=== PATIENT | female | born 1975 | race Caucasian/White ===

== ENCOUNTER 2022-03-18 10:42 | Outpatient (REF) | payer BC, SELFPAY ==
--- NOTE | ~2022-03-18 | XR_ITS ---
EXAMINATION: XR CHEST CLINICAL INFORMATION: Morbid obesity due to excess calories COMPARISON: None. TECHNIQUE: PA and lateral radiographs of the chest were obtained. FINDINGS: No focal consolidation or mass. No pleural effusion or pneumothorax. Normal pulmonary vascularity. Normal heart size. Regional skeleton intact. XR/XR chest 2V IMPRESSION: No acute pulmonary disease.
[2022-03-18 11:04] LABS: MANUAL DIFF FLAG NO
--- NOTE | 2022-03-18 11:06 | ECG_ITS ---
Test Reason : E66.01 MORBID OBESITY Blood Pressure : / mmHG Vent. Rate : 068 BPM Atrial Rate : 068 BPM P-R Int : 146 ms QRS Dur : 078 ms QT Int : 420 ms P-R-T Axes : 021 000 017 degrees QTc Int : 446 ms Normal sinus rhythm Cannot rule out Anterior infarct , age undetermined Abnormal ECG No previous ECGs available Referred By: Micky Leahy Electronically Signed By:LEOPOLDO ANDRE
[2022-03-18 11:44] LABS: Basophils Percent Auto 0.3 % (0-2); Eosinophils Percent Auto 0.4 % (0-4); Hematocrit 35.8 % (37.0-47.0); Hemoglobin 11.8 g/dl (12.0-16.0); Imm Gran Abs Auto 0.04 X10*3/uL (0.00-0.03); Imm Gran Pct Auto 0.4 % (0.0-0.4); Lymphocytes Absolute Auto 2.3 X10*3/uL (1.2-4.9); Lymphocytes Percent Auto 25.3 % (20-40); Mean Corpuscular Hemoglobin 29.5 pg (27.0-33.0); Mean Corpuscular Volume 89.5 fL (80.0-98.0); Mean Platelet Volume 11.9 fL (9.4-12.3); Monocytes Absolute Auto 0.6 X10*3/uL (0.1-1.2); Monocytes Percent Auto 6.1 % (2-11); Neutrophils Absolute Auto 6.2 x10*3/uL (2.0-8.3); Neutrophils Percent Auto 67.5 % (45-73); Platelet Count 226 X10*3/uL (160-400); Red Cell Distribution Width 14.1 % (11.0-16.0); White Blood Count 9.1 X10*3/uL (4.8-10.8)
[2022-03-18 12:23] LABS: Alanine Aminotransferase 105 U/L (0-31); Albumin Level 4.4 g/dL (3.5-5.0); Alkaline Phosphatase 89 U/L (39-117); Anion Gap 16 (12-20); Aspartate Amino Transferase 129 U/L (5-31); Bilirubin Total 0.6 mg/dL (0.0-1.0); Blood Urea Nitrogen 11 mg/dL (9-16); C Reactive Protein 2.46 mg/dL (< or = 0.50); Calcium 9.4 mg/dL (8.4-10.2); Carbon Dioxide 22 mmol/L (22-29); Chloride 105 mmol/L (96-108); Cholesterol 259 mg/dL; Estimated Average Glucose 148 mg/dL; Estimated Glomerular Filt Rate > 60; Glucose Random 117 mg/dL (60-115); HDL Cholesterol 41 mg/dL; Hemoglobin A1c % 6.8 %; Iron 117 mcg/dL (30-160); LDL Cholesterol Calculated 182 mg/dl; Percent Iron Saturation 27 % (15-50); Sodium 139 mmol/L (135-145); Total Iron Binding Capacity 441 mcg/dL (228-428); Total Protein 7.3 g/dL (6.5-8.0); Triglycerides 180 mg/dL; Unsaturated Iron Binding 324 ug/dL
[2022-03-18 12:31] LABS: Ferritin 223 ng/mL (10-250); Vitamin D 25-OH Total 24.6 ng/mL (>30)
[2022-03-18 13:01] LABS: Insulin 25 uU/mL (2-29)
[2022-03-18 13:04] LABS: Folate 14.3 ng/mL (> or = 4.0); Vitamin B12 776 pg/mL (200-900)
[2022-03-20 11:02] LABS: Calcium (PTHI) 9.2 mg/dL (8.6-10.2); PTHI 85 pg/mL (16-77)
[2022-03-21 06:32] LABS: Zinc 87 mcg/dL (60-130)
[2022-03-23 00:12] LABS: Vitamin A 50 mcg/dL (38-98)
[2022-03-24 13:22] LABS: Vitamin B1 10 nmol/L (8-30)
== END 2022-03-18 10:43 | disposition home or self-care (01) ==
LOC: HO.LAB 10:42
PROVIDERS: Visit Provider Physician Assistant Surgical
DX: E66.01 Morbid (severe) obesity due to excess calories (principal)
CPT/HCPCS: 36415; 71046; 80053; 80061; 82306; 82607; 82728; 82746; 83036; 83525; 83540; 83970; 84425; 84443; 84590; 84630; 85025; 86140; 93005

== ENCOUNTER 2022-04-01 16:01 | Outpatient (REF) | payer BC, SELFPAY ==
[2022-04-02 15:10] LABS: H Pylori Breath Test Negative (Negative)
== END 2022-04-01 16:02 | disposition home or self-care (01) ==
LOC: HO.LNP 16:01
PROVIDERS: PCP Physician Assistant Surgical; Visit Provider Physician Assistant Surgical
DX: E66.01 Morbid (severe) obesity due to excess calories (principal)
CPT/HCPCS: 83013

== ENCOUNTER → 2022-04-15 10:09 | Outpatient (BNVA) | payer BC, SELFPAY | PROVIDERS: PCP Physician Assistant Surgical; Referring Provider Physician Assistant Surgical; Visit Provider Dietitian, Registered | DX: E66.9 Obesity, unspecified (principal) | CPT/HCPCS: 97802 ==

== ENCOUNTER → 2022-04-16 10:12 | Outpatient (BNVA) | payer BC, SELFPAY | PROVIDERS: Referring Provider Physician Assistant Surgical; Visit Provider Counselor Mental Health | DX: F43.20 Adjustment disorder, unspecified (principal); G47.33 Obstructive sleep apnea (adult) (pediatric); E66.01 Morbid (severe) obesity due to excess calories | CPT/HCPCS: 90791 ==

== ENCOUNTER → 2022-04-19 07:52 | Outpatient (REF) | payer BC, SELFPAY ==
--- NOTE | 2022-04-19 07:54 | CA_ITS ---
Acquisition Time: 2022-04-19 08:04:34 Total Exercise Time: 00:06:56 Test Indications: ABN EKG Medications: SEE CHART Protocol: SMILEY Max HR: 153 BPM 87% of Pred: 175 BPM Max BP: 186/052 mmHG Max Work Load: 8.4 METS Exercise stress test with exercise 6 min 56 sec of Smiley protocol, achieving 87% MPHR, 8.4 METs, with fatigue and request to stop, without anginal symptoms, without arrythmia, with normotensive response to exercise, without EKG changes meeting criteria for ischemia. Test reviewed with Dr Gutierrez. Referred By: Brando Hughes Overread By: ALIN BORJAS
== END ==
LOC: HO.CARD 07:52
PROVIDERS: Visit Provider Surgery
DX: R94.31 Abnormal electrocardiogram [ECG] [EKG] (principal)
CPT/HCPCS: 93017

== ENCOUNTER 2022-05-08 07:39 | Outpatient (REF) | payer BC, SELFPAY ==
--- NOTE | ~2022-05-08 | FL_ITS ---
EXAMINATION: XR FLUOROSCOPY UPPER GI WITH AIR CLINICAL INFORMATION: Morbid/severe obesity due to excess calories. COMPARISON: Upper GI exam 11/17/2018. TECHNIQUE: Routine upper GI air-contrast study was performed in upright and lying position. FINDINGS: Following oral administration of thick barium and effervescent granules, there is normal propagation of bolus from the oral cavity through the pharynx and esophagus and into the stomach without any evidence of obstruction, narrowing or stricture. On placing patient lying supine and prone, the course, caliber and peristalsis of the stomach, duodenal bulb and the sweep are normal. There is barium flocculation in the dependent portion of the stomach. Rest of the mucosal pattern of the stomach, duodenal bulb and the sweep is normal. FLUOROSCOPY TIME: 2.9 minutes. DOSE AREA PRODUCT: 44.376 uGy-m2 (microgray-meter squared). FL/FL upper GI w air IMPRESSION: Increased flocculation of barium in the gastric antrum suspicious for hyperacidity. There is no reflux seen at this time.
--- NOTE | ~2022-05-08 | US_ITS ---
EXAMINATION: US COMPLETE ABDOMEN WITH LIVER ELASTOGRAPHY CLINICAL INFORMATION: Obesity COMPARISON: None. TECHNIQUE: Real-time imaging of the abdominal viscera. Noninvasive ultrasound liver fibrosis assessment is performed using Davie ElastPQ point quantification shear wave elastography (2D-SWE) with a C5-2 MHz transducer. Multiple elastography samples are obtained. FINDINGS: PANCREAS: Normal. ABDOMINAL AORTA: The proximal, middle, and distal aortic segments are normal in caliber. INFERIOR VENA CAVA: Visualized portions are normal. LIVER: Liver echotexture is slightly increased. The liver demonstrates normal size, and contour. No focal lesion or intrahepatic biliary duct dilatation. The right lobe measures 14 cm in length. The left lobe measures 11 cm in length. Portal flow is normal/hepatopedal Shear wave liver elastography median stiffness is 1.2 m/s (reference: normal median stiffness is 1.3 m/s or less). IQR/median stiffness to assess sampling precision is 0.11 (reference: good quality data set is IQR/median stiffness of 0.15 or less). GALLBLADDER: The gallbladder is normal in size. There is a 0.7 x 1.6 x 0.7 cm echogenic lesion adjacent to the gallbladder wall questionable for sludge versus polyp or mass. This does not demonstrate vascularity. Short-term follow-up imaging of the gallbladder is recommended. No gallstones are seen. The gallbladder wall is otherwise normal. COMMON BILE DUCT: Normal in caliber measuring 0.4 cm in diameter. RIGHT KIDNEY: Normal. No hydronephrosis. No renal calculi or focal parenchymal lesions. The kidney measures 12.4 cm in maximum dimension. LEFT KIDNEY: Normal. No hydronephrosis. No renal calculi or focal parenchymal lesions. The kidney measures 12 cm in maximum dimension. SPLEEN: Normal. The spleen measures 12 cm in maximum dimension. FREE FLUID: None. US/US abdomen comp w elastography IMPRESSION: 1. Impression: Slightly echogenic liver. 0.7 x 1.6 x 0.7 cm echogenic area adjacent to the gallbladder wall questionable for gallbladder wall polyp or mass versus sludge. Short-term follow-up gallbladder ultrasound recommended. 2. Liver elastography: Adequate liver sampling. Normal liver stiffness. REFERENCE: Society of Radiologists in Ultrasound Liver Stiffness Thresholds (2020): LIVER STIFFNESS THRESHOLDS: *Liver Stiffness equal or less than 1.3 m/s: High probability of being normal. *Liver Stiffness less than 1.7 m/s: In the absence of other known clinical signs, rules out compensated advanced chronic liver disease. *Liver Stiffness 1.7-2.1 m/s: Suggestive of compensated advanced chronic liver disease but need further test for confirmation. *Liver Stiffness over 2.1 m/s: Rules in compensated advanced chronic liver disease. *Liver Stiffness over 2.4 m/s: Suggestive of clinically significant portal hypertension. QUALITY OF DATA SET: *IQR/Median value equal or less than 0.15 implies a quality data set. *IQR/Median value over 0.15 implies a poor quality data set. SIGNIFICANT CHANGE FROM PRIOR EXAM: Significant change if liver stiffness measurement is 10% or greater from prior exam. OTHER CONSIDERATIONS: The stage of liver fibrosis may be overestimated in the setting of acute hepatitis, liver inflammation, elevated liver function tests, hepatic vascular congestion, obstructive cholestasis, non-fasting state, and infiltrative diseases such as amyloidosis and lymphoma. In some patients with NAFLD, the liver stiffness thresholds for compensated advanced chronic liver disease may be lower. In causes other than viral hepatitis and NAFLD, liver stiffness thresholds are not well established.
[2022-05-08 07:57] LABS: MANUAL DIFF FLAG NO
[2022-05-08 08:49] LABS: Basophils Percent Auto 0.3 % (0-2); Eosinophils Percent Auto 0.4 % (0-4); Hematocrit 38.6 % (37.0-47.0); Hemoglobin 12.9 g/dl (12.0-16.0); Imm Gran Abs Auto 0.02 X10*3/uL (0.00-0.03); Imm Gran Pct Auto 0.3 % (0.0-0.4); Lymphocytes Absolute Auto 1.4 X10*3/uL (1.2-4.9); Lymphocytes Percent Auto 20.3 % (20-40); Mean Corpuscular HGB Conc 33.4 g/dl (31.0-35.0); Mean Corpuscular Hemoglobin 30.3 pg (27.0-33.0); Mean Corpuscular Volume 90.6 fL (80.0-98.0); Mean Platelet Volume 12.9 fL (9.4-12.3); Monocytes Absolute Auto 0.4 X10*3/uL (0.1-1.2); Monocytes Percent Auto 5.6 % (2-11); Neutrophils Absolute Auto 5.2 x10*3/uL (2.0-8.3); Neutrophils Percent Auto 73.1 % (45-73); Platelet Count 176 X10*3/uL (160-400); Red Blood Count 4.26 X10*6/uL (4.20-5.50); White Blood Count 7.1 X10*3/uL (4.8-10.8)
[2022-05-08 08:52] LABS: INTERNATIONAL NORM RATIO 1.1 (0.9-1.1); Prothrombin Time 12.7 SEC (10.0-13.1)
[2022-05-08 08:54] LABS: Partial Thromboplastin Time 32.4 SEC (26.0-36.4)
[2022-05-08 08:58] LABS: Estimated Average Glucose 108 mg/dL; Hemoglobin A1c % 5.4 %
[2022-05-08 09:14] LABS: Alanine Aminotransferase 49 U/L (0-31); Albumin Level 4.5 g/dL (3.5-5.0); Alkaline Phosphatase 73 U/L (39-117); Anion Gap 18 (12-20); Aspartate Amino Transferase 35 U/L (5-31); Bilirubin Total 0.5 mg/dL (0.0-1.0); Blood Urea Nitrogen 11 mg/dL (9-16); C Reactive Protein 2.52 mg/dL (< or = 0.50); Calcium 9.3 mg/dL (8.4-10.2); Carbon Dioxide 22 mmol/L (22-29); Chloride 105 mmol/L (96-108); Cholesterol 173 mg/dL; Estimated Glomerular Filt Rate > 60; Glucose Random 85 mg/dL (60-115); HDL Cholesterol 28 mg/dL; LDL Cholesterol Calculated 126 mg/dl; Potassium 4.3 mmol/L (3.3-5.1); Sodium 141 mmol/L (135-145); Total Protein 7.3 g/dL (6.5-8.0); Triglycerides 98 mg/dL
[2022-05-08 09:39] LABS: Insulin 9 uU/mL (2-29); TSH reflex Free T4 1.77 uIU/mL (0.32-4.0)
== END 2022-05-08 07:40 | disposition home or self-care (01) ==
LOC: HO.US 07:39
PROVIDERS: Absent Provider Surgery; Visit Provider Physician Assistant Surgical
DX: Z01.818 Encounter for other preprocedural examination (principal); E66.01 Morbid (severe) obesity due to excess calories; Z68.36 Body mass index [BMI] 36.0-36.9, adult; K21.9 Gastro-esophageal reflux disease without esophagitis; R73.03 Prediabetes
CPT/HCPCS: 36415; 74246; 76705; 76981; 80053; 80061; 83036; 83525; 84443; 85025; 85610; 85730; 86140

== ENCOUNTER → 2022-05-09 12:42 | Outpatient (REF) | payer BC, SELFPAY ==
--- NOTE | 2022-05-09 12:45 | CA_ITS ---
Transthoracic Echocardiogram Patient (Last, First, Middle): Suzi Mooney, Gender: Female Date of : 1975 Age: 46 Procedure Date: 05/09/2022 Procedure Type: Transthoracic Echocardiogram Location: OP Height: 167.64 cm Weight: 103.42 kg BSA: 2.11 m2 Heart Rate: 54 bpm BP: 148 / 74 mmHg Insulation Engineman: SB Referring MD: Brando Hughes MD Symptoms: R94.31 - Abnormal electrocardiogram [ECG] [EKG] Study Quality: Adequate w contrast ECG Rhythm: Bradycardia Conclusions: - The left ventricular systolic function is normal. The calculated ejection fraction is 56% by biplane method. - No obvious valvular pathology seen on this study. Findings Procedure Information Contrast agent, definity, is being given per protocol without apparent complications. Left Ventricle Normal left ventricular cavity size. There is normal left ventricular wall thickness. The left ventricular systolic function is normal. The calculated ejection fraction is 56% by biplane method. There is no evidence of regional wall motion abnormalities. Diastolic function is normal for age. LV peak GLS -19.8% (normal). Right Ventricle Normal right ventricular cavity size and systolic function. Atria Both atria are normal in size. Aortic Valve There is a normal trileaflet aortic valve. There is no aortic valve stenosis. There is no aortic valve regurgitation. Mitral Valve The mitral valve appears normal. There is no mitral valve regurgitation. There is no mitral valve stenosis. Pulmonic Valve The pulmonic valve is likely normal. Tricuspid Valve Normal tricuspid valve structure. There is trace tricuspid valve regurgitation. There is no evidence of pulmonary hypertension. Great Vessels The asc aorta is normal in size. Venous The inferior vena cava is normal in size and collapses greater than 50% with inspiration. Pericardium/Pleural There is no evidence of pericardial effusion. Prior Study Comparison No prior study available for comparison. Recommendations, Care & Conclusions No obvious valvular pathology seen on this study. Measurements 2D Linear Measurements IVSd: 0.98 0.6-0.9/0.6-1.0 cm LVIDd: 4.87 3.9-5.3/4.2-5.9 cm LVIDd Index: 2.31 2.4-3.2/2.2-3.1 cm/m2 LVIDs: 3.12 2.0-3.6 cm LVPWd: 1.03 0.7-1.1 cm LA Diam: 4.20 2.7-3.8/3.0-4.0 cm LAIDs Index: 1.99 1.5-2.3 cm/m2 LV Mass: 218.57 67-162/88-224 g LV Mass Index: 103.59 43-95/49-115 g/m2 LVOT Diam: 2.10 3.0+(-)1.3 cm 2D Systolic Function EF 4C: 58.10 >55% EF 2C: 49.60 >55% EF BiP: 55.90 >55% Mitral Valve MV Pk E: 0.86 MV PK A: 0.83 MV Decel Time: 187.00 E/A: 1.00 E'Lateral: 10.10 E'Medial: 7.40 E/E' Med: 11.60 E/E' Lat: 8.50 PHT: 55.00 MVA PHT: 4.00 Decel Collier: 4.59 Aortic Valve AoV Pk Kalin: 1.48 AoV Pk Grad: 9.00 LVOT LVOT Pk Kalin: 1.24 LVOT Mn Kalin: 0.80 LVOT VTI: 0.27 LVOT Pk Grad: 6.00 LVOT Mn Grad: 3.00 LVOT Diam: 2.10 LVOT Area: 3.46 Diastolic Function MV Pk E: 0.86 MV Pk A: 0.83 E/A: 1.00 E'Medial: 7.40 E/E' Med: 11.60 E' Laterial: 10.10 E/E' Lat: 8.50 Right Ventricle TAPSE (mm): 22.80 TVS' Kalin: 14.90 Tricuspid Valve TR Pk Kalin: 2.51 TR Pk Grad: 25.00 RA Press: 3.00 RVSP: 28.00 Great Vessels Aorta Sinus of Valsalva: 3.20 2.0-3.5 cm Ao Asc: 3.30 2.1-3.4 cm Pulmonary Veins Pulm Vein S/D 1.10 Pulmonary Valve PV Pk Kalin: 0.92 Peak PV Grad: 3.00 Updated in Other Vendor System with Status of Final Juan Carlos Freeman MD electronically signed on 05/09/2022 4:22:39 PM with status of Final
== END ==
LOC: HO.CARD 12:42
PROVIDERS: Visit Provider Surgery
DX: R06.02 Shortness of breath (principal); R94.31 Abnormal electrocardiogram [ECG] [EKG]
CPT/HCPCS: 93306; 93356; Q9957

== ENCOUNTER 2022-05-14 06:18 | Inpatient (IN) | payer BC, SELFPAY ==
[2022-05-01 09:57] VITALS: BMI 38.2
--- NOTE | 2022-05-10 22:42 | MHC.SHP ---
Pre-Procedural Eval Section A Date of Service: 05/10/22 The patient is an INPATIENT: Yes The History & Physical has been completed within 30 days and I have reviewed it.: Yes Section B Chief Complaint: Morbid (severe) obesity due to excess calories Relevant Family History (Specify if Yes): No Relevant Social History: None Present Medications: None Medical History: No relevant PMH History of Previous Operations: No relevant previous surgery Allergies: Allergies Allergy/AdvReac Type Severity Reaction Status Date / Time cefaclor [From Ceclor] AdvReac Mild Headache Verified 05/01/22 09:57 Review of Systems Sugical H&P ROS: Negative: Constitution, Cardiovascular, Respiratory, Neurological, Psychiatric, Hem-Onc, Allergic/Immunologic, Gastrointestinal, Genitourinary, Musculoskeletal, Integumentary, Endocrine and Eyes/Ears/Nose/Throat Exam Surgical H&P Exam: Normal: HEENT, Normal: Heart, Normal: Lungs, Normal: Extremities, Normal: Abdomen, Normal: Skin and Normal: Neurological Plan Diagnosis/Plan: Unchanged I have reviewed the history and physical and performed a pertinent physical examination on my patient. No changes have occurred unless specified.
--- NOTE | 2022-05-13 09:20 | P.CONAN_ITS ---
Documented by User: Carmenza Paul NP 05/13/22 09:24 HPI - Anesthesia Eval Consult details Narrative: 46yo F for Gastrectomy Sleeve, EGD, poss diaphragmatic hernia, poss ventral hernia, poss open Arixtra for Factor V Required Bipap after hysterectomy, PSG pending [facility] Active Problems Active Problems: All Active Problems (Updated 05/09/22 @ 08:53 by Jessica Mckeon, ROQUE) Morbid obesity (Acute) GENIA (obstructive sleep apnea) (Acute) Abnormal EKG (Acute) Adjustment disorder (Acute) Obesity (Acute) BMI 36.0-36.9,adult (Acute) Factor V deficiency (Acute) Prediabetes (Acute) GERD (gastroesophageal reflux disease) (Acute) Past Medical History Medical History (Updated 05/09/22 @ 08:53 by Jessica Mckeon RN) Anemia Borderline high cholesterol COVID-19 vaccine series completed Factor V deficiency Factor V deficiency Fatty liver GERD (gastroesophageal reflux disease) H/O complications due to general anesthesia History of COVID-19 Hypothyroid GENIA (obstructive sleep apnea) Prediabetes Family History Family History Mother Breast cancer Thyroid condition Father Kidney cancer, primary, with metastasis from kidney to other site Prostate cancer Diabetes Sister Factor 5 Leiden mutation, heterozygous Pre-diabetes Heart problem Son No problems noted. Son No problems noted. Daughter No problems noted. Daughter Seizures Surgical History Surgical History Hx of hysterectomy Hx of tonsillectomy Hx of wisdom tooth extraction Social History Social History Are you a primary child day care center worker to a significant other at home: No Do you presently have visiting nurse or other home services: No Alcohol intake: never Patient Tobacco Use Status: Never used Tobacco Use of substances other than those prescribed or required for medical reasons: No Have you been hit, kicked, punched, or otherwise hurt by someone within the past year? If so, by whom?: No Are you DNR?: No Advance Directives Information Provided: Yes (brochure mailed) Advance Directives on File: No Recently lost weight without trying: No Nutrition Risks: No Nutritional Risk Patient : No FDLMP: N/A : No Poor oral hygiene: No (one crown upper left molar) Meds Allergies Allergy/AdvReac Type Severity Reaction Status Date / Time cefaclor [From [facility]] AdvReac Mild Headache Verified 05/01/22 09:57 Home Medications Medication Instructions Recorded Confirmed Last Taken Type albuterol sulfate 90 mcg/actuation 2 puff inhalation Q4H PRN 03/18/22 05/08/22 02/18/22 History aerosol inhaler Shortness Of Breath guaifenesin 1,200 mg tablet, 1,200 mg PO BID PRN chest 03/18/22 05/14/22 Unknown History extended release 12 hr (Mucinex) congestion Exam Exam Date and Time: May 13, 2022 0920 Height,Weight and Vital Signs: Height 5 ft 6 in Weight 107.501 kg Pertinent Lab Results Pertinent Lab Results: Laboratory Tests 05/08/22 07:55 Blood Type A Negative Antibody Screen NEGATIVE Laboratory Tests 05/08/22 05/08/22 07:55 07:55 WBC 7.1 Hgb 12.9 Hct 38.6 Plt Count 176 Sodium 141 Potassium 4.3 Chloride 105 Carbon Dioxide 22 BUN 11 Creatinine 0.73 Narrative Narrative: EKG 02/2022 Vent. Rate : 068 BPM ? ? Atrial Rate : 068 BPM ?? P-R Int : 146 ms? QRS Dur : 078 ms ? ? QT Int : 420 ms ? ? ? P-R-T Axes : 021 000 017 degrees ?? QTc Int : 446 ms ? Normal sinus rhythm Cannot rule out Anterior infarct , age undetermined Abnormal ECG No previous ECGs available Exercise stress 03/2022 Protocol: ADRIEN ? Max HR: 153 BPM? 87% of? Pred: 175 BPM Max BP: 186/052 mmHG Max Work Load: 8.4 METS ? Exercise stress test with exercise 6 min 56 sec of Adrien protocol, achieving 87% ?MPHR, 8.4 METs, with fatigue and request to stop, without anginal symptoms, ?without arrythmia, with normotensive response to exercise, without EKG changes ?meeting criteria for ischemia. Test reviewed with Dr Guiterrez. ECHO 04/2022 Conclusions: - The left ventricular systolic function is normal.? The ? calculated ejection fraction is 56% by biplane method. ? - No obvious valvular pathology seen on this study.? Assessment and Plan Assessment Anesthesia Assessment: Chart Reviewed Documented by User: Marie Cohen MD 05/14/22 08:34 [facility] Past Medical History Medical History (Updated 05/09/22 @ 08:53 by Jessica Mckeon RN) Anemia Borderline high cholesterol COVID-19 vaccine series completed Factor V deficiency Factor V deficiency Fatty liver GERD (gastroesophageal reflux disease) H/O complications due to general anesthesia History of COVID-19 Hypothyroid GENIA (obstructive sleep apnea) Prediabetes Family History Family History Mother Breast cancer Thyroid condition Father Kidney cancer, primary, with metastasis from kidney to other site Prostate cancer Diabetes Sister Factor 5 Leiden mutation, heterozygous Pre-diabetes Heart problem Son No problems noted. Son No problems noted. Daughter No problems noted. Daughter Seizures Family history of problems with anesthesia: No Surgical History Surgical History Hx of hysterectomy Hx of tonsillectomy Hx of wisdom tooth extraction History of Problems with Anesthesia: Yes (Had vaginal hysterectomy- [facility]. Desaturated. Possible aspiration. Course as noted above. Also ? GENIA. No test yet.) Social History Social History Are you a primary child day care center worker to a significant other at home: No Do you presently have visiting nurse or other home services: No Alcohol intake: never Patient Tobacco Use Status: Never used Tobacco Use of substances other than those prescribed or required for medical reasons: No Have you been hit, kicked, punched, or otherwise hurt by someone within the past year? If so, by whom?: No Are you DNR?: No Advance Directives Information Provided: Yes (brochure mailed) Advance Directives on File: No Recently lost weight without trying: No Nutrition Risks: No Nutritional Risk Patient : No FDLMP: N/A : No Poor oral hygiene: No (one crown upper left molar) Meds Allergies Allergy/AdvReac Type Severity Reaction Status Date / Time cefaclor [From [facility]] AdvReac Mild Headache Verified 05/01/22 09:57 Home Medications Medication Instructions Recorded Confirmed Last Taken Type albuterol sulfate 90 mcg/actuation 2 puff inhalation Q4H PRN 03/18/22 05/08/22 02/18/22 History aerosol inhaler Shortness Of Breath guaifenesin 1,200 mg tablet, 1,200 mg PO BID PRN chest 03/18/22 05/14/22 Unknown History extended release 12 hr (Mucinex) congestion Exam Height,Weight and Vital Signs: Height 5 ft 6 in Weight 107.501 kg Vital Signs Temp Pulse Resp BP Pulse Ox O2 Del Method 05/14/22 06:35 97.1 F 68 16 139/73 96 Room Air Pertinent Lab Results Pertinent Lab Results: Laboratory Tests 05/08/22 07:55 Blood Type A Negative Antibody Screen NEGATIVE Laboratory Tests 05/08/22 05/08/22 07:55 07:55 WBC 7.1 Hgb 12.9 Hct 38.6 Plt Count 176 Sodium 141 Potassium 4.3 Chloride 105 Carbon Dioxide 22 BUN 11 Creatinine 0.73 Laboratory Results - last 24 hr 05/13/22 11:50 COVID-19 (PAUL) Negative COVID-19 Clin Com See Note Airway Mallampati Class: III TM Dist: >3cm Neck ROM: Full Loose/Missing/Broken Teeth: Yes (Extraction top left back) and No ([place] bottom left back intact. Denies broken or loose teeth) Heart: RRR Lungs: CTAB Assessment and Plan Assessment Anesthesia Assessment: Anesthesia Plan Discussed and Chart Reviewed Final Anesthetic Review Family History of Problems with Anesthesia: No History of Problems with Anesthesia: Yes (Had vaginal hysterectomy- [facility]. Desaturated. Possible aspiration. Course as noted above. Also ? GENIA. No test yet.) NPO: Yes ASA Class: III Final Preanesthetic Review: No Changes in Pt Med Stat, Meds/Allgs Chart Reviewed, Consent Obtained/Reviewed and Anes Risks/Benef Reviewed Patient Risk: Intermediate Procedure Risk: Intermediate Assessment/Block/Sedation in SS: Assess/Block/Sedation-SS Anesthetic Plan Anesthetic Plan: GA Disposition: Standard PACU and Inp. Admit - Standard Bed
[2022-05-13 12:22] LABS: COVID-19 Test Negative (Negative)
[2022-05-14] VITALS (14 sets, daily range): BP systolic 139–180; BP diastolic 71–94; PULSE 59–76; RESP 16–22; TEMP 36.2–36.3; O2SAT 90–99
--- OUTSIDE RECORDS SUMMARY | 2022-05-14 06:21 | XMS_ITS | Continuity of Care Document ---
:1975 Author Organization [facility] Address [address] [place] [phone]- Care Team Providers Name Role Phone Ely JACOBO, Shelly Kovacs Primary Care Physician [id number] Date(s): 11/23/21 - 11/24/[address] [address]- Discharge Disposition: A-D/C Walkout Attending Physician: Not on Staff, Attending MD Admitting Physician: Not on Staff, Admitting MD Referring Physician: Not on Staff, Referring MD Allergies, Adverse Reactions, Alerts Substance Reaction Severity Status cephalosporins headache Active Ceclor MANJARREZ - Headache Active Immunizations Given and Recorded Vaccine Date Status Refusal Reason SARS-CoV-2 (COVID-19) Ad26 vaccine 10/29/20 Given Medications acetaminophen 325 mg oral tablet 650 mg, 2, tablet, By Mouth, Every 4 hours, PRN, # 50 tablet, Refills 0, Tot. Refills 0, Maintenance, as needed for pain, 11/01/21 14:10:00 EDT, Route to Pharmacy Electronically, [facility]/pharmacy #[id number], Partial fill upon patient request if the prescriptio... Start Date: 11/01/21 Status: OrderedAlbuterol (Eqv-Proventil HFA) 90 mcg/inh inhalation aerosol 2 puffs, Inhalation, Every 6 hours, # 8 Gm, 0 Refills, Maintenance, 11/21/21 13:50:00 EDT, [id number], Partial fill upon patient request if the prescription is for a schedule II opioid drug., 167.6, cm, 11/16/21 10:10:00 EDT, Height, 118, kg,... Start Date: 11/21/21 Status: OrderedClaritin 5 mg oral tablet, chewable 1 tablet = 5 mg, Chew, Daily, PRN Congestion, # 30 tablet, 0 Refills, Maintenance, 05/21/21 9:01:00 EDT, Chew Tablet, Partial fill upon patient request if the prescription is for a schedule II opioid drug. Start Date: 05/21/21 Status: Ordereddocusate sodium 100 mg oral tablet 1 tablet = 100 mg, By Mouth, 2 times a day, PRN for constipation, # 60 tablet, 0 Refills, Maintenance, 11/01/21 14:10:00 EDT, Tablet, [facility]/pharmacy #[id number], Partial fill upon patient request if the prescription is for a schedule II opioid drug., 167.6, c... Start Date: 11/01/21 Status: Orderedibuprofen 600 mg oral tablet 600 mg, 1, tablet, By Mouth, Every 6 hours, # 40 tablet, Refills 0, Tot. Refills 0, Maintenance, 11/01/21 14:10:00 EDT, Route to Pharmacy Electronically, [facility]/pharmacy #[id number], Partial fill upon patient request if the prescription is for a schedule II op... Start Date: 11/01/21 Status: OrderedMulti Vitamin+ 1 tab, By Mouth, Daily, 0 Refills, Maintenance, 09/14/20 15:03:00 EST, Partial fill upon patient request if the prescription is for a schedule II opioid drug. Start Date: 09/14/20 Status: OrderedoxyCODONE 5 mg oral tablet 5 mg, 1, tablet, By Mouth, Every 6 hours, PRN, # 12 tablet, Refills 0, Tot. Refills 0, Maintenance, for pain, 11/01/21 14:10:00 EDT, Route to Pharmacy Electronically, [facility]/pharmacy #[id number], Partial fill upon patient request if the prescription is for a s... Start Date: 11/01/21 Status: OrderedTessalon Perles 100 mg oral capsule 1 capsule = 100 mg, By Mouth, 3 times a day, PRN as needed for cough, for 7 days, # 21 capsule, 0 Refills, Acute 11/28/21 13:52:00 EDT, 11/21/21 13:52:00 EDT, Capsule, [facility]/pharmacy #[id number], Partial fill upon patient request if the prescription is for a... Start Date: 11/21/21 Stop Date: 11/28/21 Status: Ordered Problem List Condition Effective Dates Status Health Status Informant Acute sinusitis(Confirmed) Active Allergic rhinitis(Confirmed) Active Anxiety(Confirmed) Active Chronic gingivitis(Confirmed) Active Chronic sinusitis(Confirmed) Active Depression(Confirmed) Active Difficulty swallowing(Confirmed) Active Rash(Confirmed) Active Esophageal reflux(Confirmed) Active Headache(Confirmed) Active Herpes simplex type 1 Active infection(Confirmed) Hyperglycemia(Confirmed) Active Hyperlipidemia(Confirmed) Active Hypothyroidism(Confirmed) Active Dermatitis(Confirmed) Active Arthralgia(Confirmed) Active Mild depression(Confirmed) Active Normal routine physical Active examination(Confirmed) Obesity(Confirmed) Active Otitis media(Confirmed) Active Pharyngitis(Confirmed) Active Severe obesity(Confirmed) Active Tingling(Confirmed) Active Solitary thyroid nodule(Confirmed) Active Vitamin d deficiency(Confirmed) Active Results Radiology Reports Exam Date Time Procedure Performing Provider Status 11/23/21 6:45 PM Chest 2 Views Frontal and Lat Maribel Valdez; Auth (Verified) Notes:(Chest 2 Views Frontal and Lat) Reason For Exam: Shortness of Breath RESULT: Chest 2 Views Frontal and Lat Chest 2 Views Frontal and Lat Refer to EMR; Hx of Present Illness: Pt had hysterectomy on 11 01, developed resp depression post op and was placed on Bipap. pt reports cp and sob i have to concentrate to keep my O2 above 95% CXR yesterday WNL. No hx of clots however does have factor 5 leiden def; Reason: Shortness of Breath; Clinical Question(s): Pneumonia; Special Instructions: This is a protocol film and radiologist should c COMPARISON: 11/22/2021 FINDINGS: LINES AND TUBES: None. LUNGS AND PLEURA: Clear lungs. Normal pulmonary vascularity. No pleural effusion. No pneumothorax. HEART, MEDIASTINUM AND MAVIS: Heart is normal in size. Normal upper mediastinal and hilar contour. BONES AND SOFT TISSUES: No acute abnormality. IMPRESSION: Normal chest. WSN: [id number] Ordering Physician: Wolfgang Kwok Dictated By: Micky Jensen MD Dictated Date/Time: 11/23/21 6:48 pm Reviewed By: Micky Jensen MD Signed By: Micky Jensen MD Signed Date/Time: 11/23/21 6:48 pm Transcribed By: RODNEY Transcribed Date/Time: 11/23/21 6:47 pm Vital Signs Most recent to oldest [Reference 1 2 3 Range]: Oxygen Saturation [94-100 %] 99 % 97 % 97 % (11/24/21 6:05 AM) (11/24/21 3:47 AM) (11/24/21 1:54 A M) Pulse Rate [55-90 bpm] 80 bpm 78 bpm 86 bpm (11/24/21 6:05 AM) (11/24/21 3:47 AM) (11/24/21 1:54 A M) Blood Pressure [90-138/55-84 mm 117/71 mm Hg 121/71 mm Hg 128/67 mm Hg Hg] (11/24/21 6:05 AM) (11/24/21 3:47 AM) (11/24/21 1:54 A M) Respiratory Rate [16-30 br/min] 16 br/min 16 br/min 18 br/min (11/23/21 11:15 PM) (11/23/21 9:15 PM) (11/23/21 5:11 PM) Temperature [96.8-100.4 DegF] 97.6 DegF 97.7 DegF 97 .8 DegF (11/24/21 6:05 AM) (11/24/21 3:47 AM) (11/24/21 1:54 A M) Mode of Delivery (Oxygen) Room air Room air Room a ir (11/24/21 6:05 AM) (11/24/21 3:47 AM) (11/24/21 1:54 A M) Blood pressure sites Arm, right Arm, right Arm, right (11/24/21 6:05 AM) (11/24/21 3:47 AM) (11/24/21 1:54 A M) Temperature Route Oral Oral Oral (11/24/21 6:05 AM) (11/24/21 3:47 AM) (11/24/21 1:54 A M) Social History Social History Type Response Smoking Status Never (less than 100 in life time) entered on: 09/14/20 Sex
--- OUTSIDE RECORDS SUMMARY | 2022-05-14 06:21 | XMS_ITS | Continuity of Care Document ---
:1975 Author [facility] Address [address] [place] [id number]- Care Team Providers Name Role Phone Ely JACOBO, Shelly Kovacs Primary Care Physician Encounter [facility] Date(s): 12/25/21 - 01/24/22 [facility] [address] [place] [id number] Attending Physician: Lazaro Albarran Admitting Physician: Lazaro Albarran Referring Physician: AdmtrLazaro Allergies, Adverse Reactions, Alerts Substance Reaction Severity Status cephalosporins headache Active Ceclor MANJARREZ - Headache Active Immunizations Given and Recorded Vaccine Date Status Refusal Reason influenza virus vaccine, inactivated 06/13/21 Recorded SARS-CoV-2 (COVID-19) mRNA BNT-162b2 vac 06/13/21 Recorde d SARS-CoV-2 (COVID-19) Ad26 vaccine 01/27/21 Recorded SARS-CoV-2 (COVID-19) Ad26 vaccine 10/29/20 Given tetanus/diphtheria/pertussis, acel(Tdap) 08/25/14 Recorde d Medications acetaminophen 325 mg oral tablet 650 mg, 2, tablet, By Mouth, Every 4 hours, PRN, # 50 tablet, Refills 0, Tot. Refills 0, Maintenance, as needed for pain, 11/01/21 14:10:00 EDT, Route to Pharmacy Electronically, [facility]/pharmacy #[id number], Partial fill upon patient request if the prescriptio... Start Date: 11/01/21 Status: OrderedAlbuterol (Eqv-ProAir HFA) 90 mcg/inh inhalation aerosol 2 puffs, Inhalation, Every 6 hours, # 8.5 each, 0 Refills, [facility] STORE [id number], 25, INHALE 2 PUFFS EVERY6 HOURS, 167.6, cm, 12/31/21 14:46:00 EDT, Height, 118, kg, 11/16/21 10:10:00 EDT, Dry Weight Start Date: 01/13/22 Status: OrderedClaritin 5 mg oral tablet, chewable [...] 0 Refills, Maintenance, 11/01/21 14:10:00 EDT, Tablet, [facility]/pharmacy #[id number], Partial fill upon patient request if the prescription is for a schedule II opioid drug., 167.6, c... Start Date: 11/01/21 Status: Orderedibuprofen 600 mg oral tablet 600 mg, 1, tablet, By Mouth, Every 6 hours, # 40 tablet, Refills 0, Tot. Refills 0, Maintenance, 11/01/21 14:10:00 EDT, Route to Pharmacy Electronically, [facility]/pharmacy #[id number], Partial fill upon patient request if the prescription is for a schedule II op... Start Date: 11/01/21 Status: OrderedMiraLax = 17 Gm, By Mouth, Daily, 0 Refills, Maintenance, 12/06/21 8:38:00 EDT, Partial fill upon patient request if the prescription is for a schedule II opioid drug. Start Date: 12/06/21 Status: Orderedmontelukast 10 mg oral tablet 10 mg, 1, tablet, By Mouth, Daily before dinner, # 30 tablet, Refills 2, Tot. Refills 2, Maintenance, 12/31/21 14:16:00 EDT, Route to Pharmacy Electronically, [facility]/pharmacy #[id number], Partial fill upon patient request if the prescription is for a schedule... Start Date: 12/31/21 Status: OrderedMulti Vitamin+ 1 tab, By Mouth, Daily, 0 Refills, Maintenance, 09/14/20 15:03:00 EST, Partial fill upon patient request if the prescription is for a schedule II opioid drug. Start Date: 09/14/20 Status: OrderedPrevacid 30 mg oral enteric coated capsule 1 capsule = 30 mg, By Mouth, Daily, # 30 capsule, 0 Refills, Maintenance, 12/06/21 8:38:00 EDT, [facility] Capsule, Partial fill upon patient request if the prescription is for a schedule II opioid drug. Start Date: 12/06/21 Status: Ordered Problem List Condition Effective Dates Status Health Status Informant Acute sinusitis(Confirmed) Active Allergic rhinitis(Confirmed) Active Allergic rhinitis(Confirmed) Active Anxiety(Confirmed) Active Chronic gingivitis(Confirmed) Active Chronic sinusitis(Confirmed) Active Depression(Confirmed) Active Difficulty swallowing(Confirmed) Active Rash(Confirmed) Active Esophageal reflux(Confirmed) Active Headache(Confirmed) Active Herpes simplex type 1 Active infection(Confirmed) Hyperglycemia(Confirmed) Active Hyperlipidemia(Confirmed) Active Hypothyroidism(Confirmed) Active Dermatitis(Confirmed) Active Arthralgia(Confirmed) Active Mild depression(Confirmed) Active Normal routine physical Active examination(Confirmed) Obesity(Confirmed) Active Otitis media(Confirmed) Active Pharyngitis(Confirmed) Active Prediabetes(Confirmed) Active Severe obesity(Confirmed) Active Tingling(Confirmed) Active Solitary thyroid nodule(Confirmed) Active Vitamin d deficiency(Confirmed) Active Social History Social History Type Response Smoking Status Never (less than 100 in life time) entered on: 09/14/20 Sex
--- OUTSIDE RECORDS SUMMARY | 2022-05-14 06:21 | XMS_ITS ---
:1975 Author Care Team Providers Name Role Phone JACKIE GRAY NP Primary Care Provider [phone] Allergies Code Code System Name Reaction Severity Status Onset Ceclor ? ? Active ? Medications Name Status Start Date Stop Date ? ? albuterol sulfate HFA 90 mcg/actuation aerosol inhaler Active ? Not available cyclobenzaprine 10 mg tablet Active ? Not available dexamethasone 6 mg tablet Active ? Not av ailable doxycycline monohydrate 100 mg capsule Active ? Not available escitalopram 5 mg tablet Active ? Not sue ilable ketorolac 60 mg/2 mL intramuscular solution Active ? Not available Inject 2 mL every day by intramuscular route. multivit [id number] Active ? No t available Problems None recorded. Procedures Date Name Performed by ? ? Procedure on Bladder Information not sue ilable Results Lab Results None recorded. Past Encounters 06/16/2021 Acute Low Back Pain Sepideh Herrmann NP: [address] [place] [address], Ph. Social History None recorded. Vaccine List None recorded. Plan of Care Reminders Provider Appointments None recorded. ? ? Lab None recorded. ? ? Referral None recorded. ? ? Procedures None recorded. ? ? Surgeries None recorded. ? ? Imaging None recorded. ? ? Vitals Blood Pressure 118/78 mm[Hg]
--- OUTSIDE RECORDS SUMMARY | 2022-05-14 06:21 | XMS_ITS | Continuity of Care Document ---
:1975 Author [facility] Address [address] [place] [address]- Care Team Providers Name Role Phone Ely JACOBO, Shelly Kovacs Primary Care Physician Encounter [facility] [id number] Date(s): 07/17/21 - 08/16/21 [facility] [employer] [facility] [address] [place] [address] Attending Physician: Lazaro Albarran Admitting Physician: Lazaro Albarran Referring Physician: AdmtrLazaro Allergies, Adverse Reactions, Alerts Substance Reaction Severity Status cephalosporins Active Ceclor MANJARREZ - Headache Active Immunizations Given and Recorded Vaccine Date Status Refusal Reason SARS-CoV-2 (COVID-19) Ad26 vaccine 10/29/20 Given Medications Advil By Mouth, Every 6 hours, Refills 0, Maintenance, 05/21/21 9:00:00 EDT, Partial fill upon patient request if the prescription is for a schedule II opioid drug. Start Date: 05/21/21 Status: OrderedClaritin 5 mg oral tablet, chewable 1 tablet = 5 mg, Chew, Daily, # 30 tablet, 0 Refills, Maintenance, 05/21/21 9:01:00 EDT, Chew Tablet, Partial fill upon patient request if the prescription is for a schedule II opioid drug. Start Date: 05/21/21 Status: Orderedescitalopram 5 mg oral tablet 1 tablet = 5 mg, By Mouth, Daily, # 30 tablet, 1 Refills, Maintenance, 02/20/21 15:58:00 EDT, Tablet, [id number], Partial fill upon patient request if the prescription is for a schedule II opioid drug., 170, cm, 02/07/21 11:35:00 EDT, Height,... Start Date: 02/20/21 Status: OrderedMulti Vitamin+ 0 Refills, Maintenance, 09/14/20 15:03:00 EST, Partial fill upon patient request if the prescriptionis for a schedule II opioid drug. Start Date: 09/14/20 Status: OrderedVoltaren Arthritis Pain 1% topical gel = 2 Gm, Topically, 4 times a day, 0 Refills, Maintenance, 05/21/21 9:01:00 EDT, Partial fill upon patient request if the prescription is for a schedule II opioid drug. Start Date: 05/21/21 Status: Ordered Problem List Condition Effective Dates [...] Obesity(Confirmed) Active Otitis media(Confirmed) Active Pharyngitis(Confirmed) Active Tingling(Confirmed) Active Solitary thyroid nodule(Confirmed) Active Vitamin d deficiency(Confirmed) Active Social History Social History Type Response Smoking Status Never (less than 100 in life time) entered on: 09/14/20 Sex
--- OUTSIDE RECORDS SUMMARY | 2022-05-14 06:21 | XMS_ITS | Continuity of Care Document ---
:1975 Author [facility] Address [address] [place] [address]- Care Team Providers Name Role Phone Not on Staff, PCP Primary Care Physician Unavailable Encounter [facility] Date(s): 08/30/21 - 09/29/21 [facility] [address] [address]- Allergies, Adverse Reactions, Alerts Substance Reaction Severity [...] 1 Refills, Maintenance, 02/20/21 15:58:00 EDT, Tablet, [facility]/pharmacy #[id number], Partial fill upon patient request if the [...]
--- OUTSIDE RECORDS SUMMARY | 2022-05-14 06:21 | XMS_ITS | Continuity of Care Document ---
:1975 Author Organization [facility] Address [address] [place] [address]- Care Team Providers Name Role Phone Ely JACOBO, Shelly Kovacs Primary Care Physician Encounter [facility] Date(s): 02/20/22 - 03/22/22 [facility] [address] [place] [id number] Attending Physician: AdmLazaro sena Admitting Physician: AdmtrLazaro Referring Physician: Admtr, Ar8 Allergies, Adverse Reactions, Alerts Substance Reaction Severity [...] 11/01/21 14:10:00 EDT, Route to Pharmacy Electronically, [facility]/pharmacy #[id number], Partial fill upon patient request if the prescriptio... Start Date: 11/01/21 Status: OrderedAlbuterol (Eqv-ProAir HFA) 90 mcg/inh inhalation aerosol 2 puffs, Inhalation, Every 6 hours, # 8.5 each, 0 Refills, [facility] [id number], 25, INHALE 2 PUFFS EVERY6 HOURS, 167.6, cm, 12/31/21 14:46:00 EDT, Height, 118, kg, 11/16/21 10:10:00 EDT, Dry Weight Start Date: 02/15/22 Status: Orderedbenzonatate 100 mg oral capsule 1 capsule = 100 mg, By Mouth, prn, 0 Refills, Maintenance, 02/20/22 8:16:00 EDT, Partial fill upon patient request if the prescription is for a schedule II opioid drug. Start Date: 02/20/22 Status: OrderedClaritin 5 mg oral tablet, chewable [...] 0 Refills, Maintenance, 11/01/21 14:10:00 EDT, Tablet, [facility]/pharmacy #[id number], Partial fill upon patient request if the prescription is for a schedule II opioid drug., 167.6, c... Start Date: 11/01/21 Status: Orderedibuprofen 600 mg oral tablet 600 mg, 1, tablet, By Mouth, Every 6 hours, # 40 tablet, Refills 0, Tot. Refills 0, Maintenance, 11/01/21 14:10:00 EDT, Route to Pharmacy Electronically, [facility]/pharmacy #[id number], Partial fill upon patient request if the prescription is for a schedule II op... Start Date: 11/01/21 Status: Orderedipratropium nasal 21 mcg/inh spray 2 sprays, Nares, Both, 2 times a day, # 30 mL, 5 Refills, Maintenance, 02/20/22 8:57:00 EDT, [place], [facility]/pharmacy #[id number], Partial fill upon patient request if the prescription is for a schedule II opioiddrug., 2 sprays Nares, Both 2 times a day, 167.6,... Start Date: 02/20/22 Status: OrderedLansoprazole = 15 mg, By Mouth, Daily, 0 Refills, Maintenance, 02/20/22 8:16:00 EDT, Partial fill upon patient request if the prescription is for a schedule II opioid drug. Start Date: 02/20/22 Status: OrderedMiraLax = 17 Gm, By Mouth, Daily, 0 Refills, Maintenance, 12/06/21 8:38:00 EDT, Partial fill upon patient request if the prescription is for a schedule II opioid drug. Start Date: 12/06/21 Status: Orderedmontelukast 10 mg oral tablet 10 mg, 1, tablet, By Mouth, Daily before dinner, # 30 tablet, Refills 2, Tot. Refills 2, Maintenance, 03/12/22 12:46:00 EDT, Route to Pharmacy Electronically, [facility]/pharmacy #[id number], Partial fill upon patient request if the prescription is for a schedule... Start Date: 03/12/22 Status: OrderedMucinex = 1,200 mg, By Mouth, prn, 0 Refills, Maintenance, 02/20/22 8:15:00 EDT, Partial fill upon patient request if the prescription is for a schedule II opioid drug. Start Date: 02/20/22 Status: OrderedMulti Vitamin+ 1 tab, By Mouth, [...] Active Allergic rhinitis(Confirmed) Active Anxiety(Confirmed) Active Chronic cough(Confirmed) Active Chronic gingivitis(Confirmed) Active Chronic sinusitis(Confirmed) Active [...] in life time) entered on: 09/14/20 Sex Care Team PersonnelName: Ely JACOBO, Shelly Kovacs Address: [address] [place] [address] Primary [place], [place] [address]
--- OUTSIDE RECORDS SUMMARY | 2022-05-14 06:21 | XMS_ITS | Continuity of Care Document ---
:1975 Author Organization [facility] Address [address] [place] [id number]- Care Team Providers Name Role Phone Ely JACOBO, Shelly Kovacs Primary Care Physician Encounter [facility] Date(s): 11/01/21 - 11/02/[address] [id number] Discharge Disposition: A-D/C Home Attending Physician: Alessia Santana MD Admitting Physician: Alessia Santana MD Referring Physician: Alessia Santana MD Allergies, Adverse Reactions, Alerts Substance Reaction [...] 11/01/21 14:10:00 EDT, Route to Pharmacy Electronically, [facility]/pharmacy #[id number], Partial fill upon patient request if the prescriptio... Start Date: 11/01/21 Status: OrderedClaritin 5 mg oral tablet, chewable [...] 0 Refills, Maintenance, 11/01/21 14:10:00 EDT, Tablet, [id number], Partial fill upon patient request if the prescription is for a schedule II opioid drug., 167.6, c... Start Date: 11/01/21 Status: Orderedibuprofen 600 mg oral tablet 600 mg, 1, tablet, By Mouth, Every 6 hours, # 40 tablet, Refills 0, Tot. Refills 0, Maintenance, 11/01/21 14:10:00 EDT, Route to Pharmacy Electronically, [id number], Partial fill upon patient request if the prescription is for a schedule II op... Start Date: 11/01/21 Status: OrderedIbuprofen Tablet 600 mg, Tablet, By Mouth, 11/02/21 13:00:00 EDT Start Date: 11/02/21 Stop Date: 11/02/21 Status: CompletedMulti Vitamin+ 1 tab, By Mouth, Daily, 0 [...] 11/01/21 14:10:00 EDT, Route to Pharmacy Electronically, [facility]/pharmacy #[id number], Partial fill upon patient request if the prescription is for a s... Start Date: 11/01/21 Status: Ordered Problem List Condition Effective Dates [...] Exam Date Time Procedure Performing Provider Status 11/01/21 7:29 PM Chest Portable Maurice Soria; Kamaljit (Verified) Notes:(Chest Portable) Reason For Exam: postoperative desaturations, ?aspiration;PostopRESULT: Chest Portable Chest Portable Reason: Postop; postoperative desaturations, ?aspiration; Clinical Question(s): Aspiration COMPARISON: 08/15/2017. FINDINGS: LINES AND TUBES: None. LUNGS AND PLEURA: Poor inspiration. Ill-defined patchy densities are seen in the lower lungs bilaterally suggesting acute infiltrates versus atelectasis. Please correlate clinically. Normal pulmonary vascularity. No pleural effusion. No pneumothorax. HEART, MEDIASTINUM AND MAVIS: Heart is normal in size. Normal upper mediastinal and hilar contour. BONES AND SOFT TISSUES: No acute abnormality. IMPRESSION: Poor inspiration. Ill-defined patchy densities are seen in the lower lungs bilaterally suggesting acute infiltrates versus atelectasis. Please correlate clinically. WSN: [id number] Ordering Physician: Brenda Ornelas Dictated By: Tim Mcclure MD Dictated Date/Time: 11/01/21 7:49 pm Reviewed By: Tim Mcclure MD Signed By: Tim Mcclure MD Signed Date/Time: 11/01/21 7:49 pm Transcribed By: RODNEY Transcribed Date/Time: 11/01/21 7:48 pm Vital Signs Most recent to oldest 1 2 3 [Reference Range]: Height 167.6 cm 167.6 cm 167.6 cm (11/02/21 6:23 AM) (11/01/21 12:49 PM) (10/29/21 5: 59 PM) Weight 122 kg 119.7 kg 122.7 kg (11/02/21 6:23 AM) (11/01/21 12:49 PM) (10/29/21 5: 59 PM) Oxygen Saturation [94-100 94 % 96 % 93 % %] (11/02/21 3:00 PM) (11/02/21 2:00 PM) *L* (11/02/21 1:00 PM ) Pulse Rate [55-90 bpm] 89 bpm 85 bpm 77 bpm (11/02/21 2:00 PM) (11/02/21 10:00 AM) (11/02/21 6: 23 AM) Body Mass Index 43.43 42.61 43.68 [18.5-24.99] *>HHI* *>HHI* *>HHI* (11/02/21 6:23 AM) (11/01/21 12:49 PM) (10/29/21 5: 59 PM) Blood Pressure 112/83 mm Hg 146/74 mm Hg 143/72 mm Hg [90-138/55-84 mm Hg] (11/02/21 2:00 PM) *H* *H* (11/02/21 1:00 PM) (11/02/21 12:00 PM) Respiratory Rate [16-30 18 br/min 16 br/min 21 br/mi n br/min] (11/02/21 3:17 PM) (11/02/21 3:00 PM) (11/02/21 2:0 0 PM) Temperature [96.8-100.4 98.7 DegF 98.2 DegF 98.5 Deg F DegF] (11/02/21 2:00 PM) (11/02/21 10:00 AM) (11/02/21 6: 23 AM) Liters per Minute 2 L/min 2 L/min 2 L/min (11/02/21 10:00 AM) (11/02/21 9:00 AM) (11/02/21 8: 00 AM) Mode of Delivery (Oxygen) Room air Room air Room a ir (11/02/21 3:00 PM) (11/02/21 2:00 PM) (11/02/21 1:0 0 PM) Blood pressure sites Arm, left Arm, right Arm, right (11/02/21 2:00 PM) (11/02/21 10:00 AM) (11/02/21 6: 23 AM) Temperature Route Oral Oral Oral (11/02/21 2:00 PM) (11/02/21 10:00 AM) (11/02/21 6: 23 AM) Dry Weight 122 kg 119.7 kg 122.7 kg (11/02/21 6:23 AM) (11/01/21 12:49 PM) (10/29/21 5: 59 PM) Weight Obtained Via Standing scale Patient/family stated (11/01/21 12:49 PM) (10/29/21 5:59 PM) Dry Weight Obtained Via Standing scale Patient/family stated (11/01/21 12:49 PM) (10/29/21 5:59 PM) Social History Social History Type Response Smoking Status Never (less than 100 in life time) entered on: 09/14/20 Sex
[2022-05-14] MEDS: Lactated Ringers 1,000 ML 999 ML IV (06:37)
--- NOTE | 2022-05-14 07:08 | PHA.MEDREC ---
Pharmacy Consult ? Medication Reconciliation Pharmacy has completed the medication reconciliation. Reviewed med rec done by nursing
--- NOTE | 2022-05-14 10:14 | P.BOP_ITS ---
Brief Operative Note Date of Service: 05/14/22 Pre-op diagnosis: Severe obesity with comorbidities (see below) Post-op diagnosis: same Procedure: INITIAL PATIENT BMI ON PRESENTATION AT OUR OFFICE: 42.4 kg/m2 LAST BMI BEFORE SURGERY: 36.9 kg/m2 COMORBIDITIES: Factor V deficiency, asthma, GERD, prediabetes, hip pain, liver fibrosis ?The patient presented to the Weight Management Program with significant obesity that was negatively impacting the patient's comorbidities as listed above.? The program is a phased program with a special focus on preoperative medical weight management to promote substantial weight loss and prepare the patients for the second phase of the program: bariatric surgery. The patient participated in an intensive weekly lifestyle ?intervention and exercise program during which the patient ?has lost between the initial office visit and the last preoperative visit 33.6lbs, or 13.8% of initial actual body weight. It was deemed appropriate for the patient to now have bariatric surgery. In light of the current Covid-19 pandemic and the well documented strong association of obesity and increased risk of worse outcomes if infected with Covid-19 (REFERENCES: https://pubmed.ncbi.nlm.nih.gov/36344889/ ,? https://pubmed.ncbi.nlm.nih.gov/26778599/ ), any delay in undergoing bariatric surgery may lead to the patient's worsening health condition and increased?risk of more severe Covid-19 disease if infected. In addition a recent?study from [facility] published in [employer] on 07/16/2021 ([email or web address].pdf) found that, among patients with obesity, substantial weight loss achieved with surgery was associated with improved outcomes of COVID-19 infection. The findings suggest that obesity can be a modifiable risk factor for the severity of COVID-19 infection. In addition, the patient met the BMI-criteria for bariatric surgery based on the BMI on initial presentation. The patient should not be penalized for achieving such weight loss because ?it is not sustainable long-term without surgical intervention and it was achieved in preparation for bariatric surgery ?under my direction and based on my published research ([email or web address]:/[email or web address]).pdf and? https://www.soard.org/article/N6884-4444(09)01630-X/pdf ) ?that a 10% preop erative weight loss improves long-term weight loss after surgery and reduces perioperative complications.? Insurance carriers such as [facility] have endorsed my recommendations ?and have included in their policies criteria to include a 10% preoperative weight loss requirement. PROCEDURE: Esophago-gastroscopy, laparoscopic sleeve gastrectomy and laparoscopic gastropexy INDICATIONS: This is a 46 year-old female who was electively scheduled for laparoscopic, possibly open sleeve gastrectomy. The risks and complications of the procedure were discussed with the patient in advance, particularly the poss ibility of ; pulmonary embolism; staple line leak; bleeding; GERD; cardiac, pulmonary, or renal complications; as well as long-term problems such as insufficient weight loss, vitamin deficiency, strictures, or ulcers. The patient understood all the risks, and was in agreement to proceed with surgery. DESCRIPTION OF PROCEDURE: After informed consent was obtained from the patient, the patient was given preoperative antibiotics, and was transferred to the operating room. After successful induction of general anesthesia, pneumatic compression devices were placed on both lower extremities. An upper endoscopy was performed next. The oropharynx and esophagus appeared to be within normal limits. There was no diaphragmatic hernia present consistent with the findings of the preoperative upper GI. The stomach was entered. Then after all fluid and air were suctioned and the stomach was fully decompressed, the scope was withdrawn and secured in the mid esophagus. The patient was then prepped and draped in the usual sterile manner, and abdominal access was established at the right upper quadrant with the Zeferino technique. A 12 mm blunt port was inserted, and the abdomen was insufflated with CO2 to a pressure of 15 mmHg. Under direct visualization, additional ports were placed, specifically two 5 mm Versi-step ports to the left upper quadrant, and a 5 mm Versi-Step port to the right upper quadrant. 1% lidocaine plain was used to infiltrate all port sites as well as all fascia defects. Using the EndoClose suture passer device, I placed a #1 Polysorb tie across the falciform ligament in order to retract it up against the abdominal wall and prevent injury of the ligament with our instruments during the procedure. Following that, the patient was placed in a steep reverse Trendelenburg position. An additional 5 mm port was placed to the right flank for the Mediflex retractor that was used to retract the left lobe of the liver. The gastro-esophageal fat pad was opened with the ultrasonic device (Thunderbeat, Olympus) and the anterior esophagus and hiatus were exposed. The angle of His was opened with the ultrasonic device the fundus of the stomach from any diaphragmatic and splenic attachments. I then opened the gastrocolic ligament between the transverse colon and the greater curvature of the stomach with the ultrasonic device to enter the lesser sac and facilitate the ligation of the short gastric vessels. I started at a mid-point along the greater curvature and using the Thunderbeat, all short gastric vessels were divided all the way to the angle of His until the left bailey was completely dissected at its entirety. I then divided the gastro-colic ligament distally to a distance of about 3-4 cm proximal to the pylorus.? The stomach was then divided transversely with one Endo KRANTHI-45 purple and four KRANTHI-60 articulating orange loads using the AEON stapler and loads. Every effort was made that the gastric sleeve had a tubular shape and an even caliber throughout. Once the sleeve resection was completed, the staple line of the gastric sleeve was reinforced with Hemoclips. The resected stomach was retrieved without difficulty from the Zeferino port. A gastropexy was then performed in order to prevent postoperative GERD and partial gastric volvulus. Several interrupted 2.0 Surgidac sutures were placed between the sleeve's staple line and the previously divided greater omentum and gastro-colic ligament using the Endo-Stitch device. ?An upper endoscopy was performed. There was no narrowing at the GE junction. The scope was easily advanced all the way to the pylorus which was clearly visualized. There was no narrowing anywhere and the sleeve's caliber was even throughout. The sleeve's staple line was inspected and there was no evidence of ischemia, bleeding or dehiscence. At that point the gastroscope was withdrawn from the patient?s mouth while we were decompressing the bowel and the stomach from any remaining air. I looked into the lesser sac to see how the sleeve was situating and it was situating well. There was no bleeding from the staple line, spleen, or short gastric vessels. The Mediflex retractor was removed, and the undersurface of the liver was inspected and there was no bleeding. The patient was placed in supine position. I closed the fascial defect of the 12 mm port site with a figure of eight #1 Polysorb suture. Then 30cc Ropivacaine plain with 10 mg of Dexamethasone were used to infiltrate the fascial closure as well as all skin incisions. A total of 7ml of Zynrelef was applied in the Zeferino wound. At this point, the abdomen was deflated, all ports were removed under direct vision, and no bleeding was noted from any of the port sites. The skin incisions were irrigated with saline and were closed with 4-0 absorbable monofilament sutures. Steri-Strips and OpSites were used to cover all incisions. The patient was extubated and was transferred in stable condition to the recovery room for further care. I was present and performed all calderón parts of the procedure. Ms. Weber was the assistant professor of economics. There were no residents to assist with this case. Aiden Hughes MD, PhD, FACS Surgeon: Brando Hughes MD Anesthesia: GETA, local and other (TAP block and 7ml Zynrelef) Was an Surface Supply Breathing Apparatus used for this Procedure?: Yes Surface Supply Breathing Apparatus: Beth Weber Estimated blood loss (mL): 10 IV fluids (mL): 2,800 Urine output (mL): 0 (No Mcclain to record) Pathology: other (Stomach) Condition: stable Disposition: PACU
--- NOTE | 2022-05-14 10:24 | PM.DS ---
DS: Providers Provider Date of Service: 05/15/22 Date of admission: 05/14/22 06:18 Primary care physician: Unknown Physician DS: Summary Hospital Course Hospital Course: ADMITTING DIAGNOSIS: morbid obesity, Factor V deficienecy, GENIA, GERD DISCHARGE DIAGNOSIS: same, s/p laparoscopic sleeve gastrectomy PAST SURGICAL HISTORY: hysterectomy PROCEDURE: upper endoscopy, laparoscopic sleeve gastrectomy DISCHARGE SUMMARY: History of Present Illness: The patient is a 46 year-old woman with a BMI of 42.3 kg/m2 and associated co-morbidities as described above. The patient had extensive work-up,lost 33.6 lbs preoperatively and was electively scheduled for laparoscopic, possible open sleeve gastrectomy and gastropexy. Risks and complications of the surgery were discussed with the patient in advance, particularly the possibility of , pulmonary embolism, anastomotic leak, bleeding, bowel injury, GERD, cardiac, renal or pulmonary complications. The patient understood all the risks and was in agreement with the surgical plan. Hospital Course: The patient underwent an uneventful laparoscopic sleeve gastrectomy with gastropexy on the day of admission. Postoperatively, the patient was transferred to the surgical floor. The patient received IV Acetaminophen and IV dilaudid for pain control. Patient was started on bariatric phase 1 diet POD #0. On postoperative day one, the patient was feeling well without nausea, vomiting, fevers, or tachycardia. The patient had some mild incisional pain and the abdomen was soft. On the morning of postoperative day one, the patient was continued on 1 ounce of water or ice every half hour. During the day, the patient did fairly well, having some incisional pain, but able to ambulate adequately and to tolerate liquids well. Since the patient is doing well, we decided that the patient was ready to be discharged. The patient was given instructions to follow-up with me next week and to call my office for any fever over 101, persistent abdominal pain, nausea, vomiting, GERD, symptoms of DVT such as calf tenderness, or leg swelling, or pulmonary embolism such as chest pain or shortness of breath. The patient was also instructed to drink 40-60 ounces of liquids per day using the 1-ounce cups. The patient had been given prescriptions for Tylenol for pain, Zofran prn for nausea, and pantoprazole and carafate previously. The patient was encouraged to ambulate and use the incentive spirometer. The patient was allowed to shower, but no baths, and encouraged to stay active at home. All of these instructions were given to the patient personally. All questions were answered and the patient understood all instructions, the instructions were also given to the patient in print. Time Spent with Patient Time attestation: Total time spent providing and/or coordinating discharge services: Discharge coordination time: Less than 30 minutes Quality: Safe Use of Opioids Does Pt have an Active Cancer Diagnosis on the Problem List?: No Quality: Stroke Does the patient have a stroke diagnosis?: No Physical Exam Vital Signs: Vital Signs: Last Vital Signs Temp 97.1 F 05/14/22 06:35 Pulse 68 05/14/22 06:35 Resp 16 05/14/22 06:35 BP 139/73 05/14/22 06:35 Pulse Ox 96 05/14/22 06:35 O2 Del Method 05/14/22 06:35 BMI result Body Mass Index 38.2 DS: Data Data Completed and Pending Pending studies at discharge: Pending at discharge 05/14/22 09:29 Surgical [PTH] Routine Labs on day of discharge: Laboratory Results - last 24 hr 05/13/22 11:50 COVID-19 (PAUL) Negative COVID-19 Clin Com See Note Discharge Plan Discharge Anticipated Discharge Date/Time: 05/15/22 10:21 Patient Disposition: Home, Self-Care Discharge Diagnosis: s/p sleeve gastrectomy Referrals: Physician,Unknown J [Primary Care Provider] - 1 Week Discharge Medications: Continued pantoprazole 40 mg tablet,delayed release (DR/EC) 40 mg PO DAILY Qty: 30 2RF sucralfate 100 mg/mL suspension 10 ml PO BID Qty: 400 2RF ondansetron HCl 4 mg tablet 4 mg PO Q12H Qty: 20 0RF Label Comments: to be started after surgery albuterol sulfate 90 mcg/actuation HFA aerosol inhaler 2 puff inhalation Q4H PRN (Reason: Shortness Of Breath) Mucinex 1,200 mg tablet extended release 12hr 1,200 mg PO BID PRN (Reason: chest congestion) Held fondaparinux 2.5 mg/0.5 mL syringe 2.5 mg subcut Q24H Qty: 5 2RF Hold Instructions: Discuss when to start with Dr Hughes Label Comments: to be started after surgery Discontinued cholecalciferol (vitamin D3) 125 mcg (5,000 unit) tablet 125 mcg PO DAILY Qty: 30 2RF polyethylene glycol 3350 [Miralax] 17 gram powder in packet 17 g PO DAILY Qty: 14 0RF Rx Instructions: Mix each packet with 8oz of water and do 7 packets on 05/12/22 and another 7 packets on 05/13/22 Discharge Orders: Discharge Order (Routine); Ordered 05/15/22 Ordered By: Brando Hughes Activity on Discharge: No heavy lifting Stand Alone Forms: Patient Portal Discharge page Care Plan Goals: weight loss Health Concerns: obesity Plan of Treatment: No tub baths, sex or returning to work until discussed at first post op appointment. No exercise, alcohol, tobacco or illegal drug use. Continue to use incentive spirometer hourly while awake. Walk in home for 5- 10 minutes every 2 hours during the first week. Continue phase 1 diet today and start phase 2 diet tomorrow morning. Follow all instructions in the bariatric handbook and call with any questions. 1. Please call your doctor or come back to the emergency room should any new symptoms arise. 2. You will receive a courtesy call from [facility] 24-48 hours after discharge. 3. Activity: abstain from alcohol, practice limited stair climbing, no bending, no driving, no exercise, no illicit substances, no lifting, no sex, no tub bath, no work. 4. Diet: continue as discussed with bariatric team.. 5. Dressing Change/Wound Care: Do not change or remove surgical dressings unless they are wet or soiled. 6. Call your doctor if: - Your temperature exceeds 101.5 F - You experience excessive pain or swelling - You have an unexpected reaction to medication - You have excessive bleeding - You experience continued vomiting/nausea - Your incision begins to separate - Your incision shows signs of infection such as increased redness, swelling, excessive pain, heat, or drainage (light blood or clear fluid is normal) 7. General instructions: No lifting greater than 5 lbs for the next 4 weeks[address] driving within 24 hours of taking narcotic pain medications. If you do not move your bowels in the next 2 days, please take milk of magnesia over the counter. Please follow the post op diet and do not advance your diet until you are seen in the office in about 2 weeks. Please walk around your home every hour or two to prevent blood clots from forming in your legs. You do not need to wake from sleeping to walk. Please sleep in a bed or couch to prevent kinking at the hips and knees. Please take your incentive spirometer (your lung oracle ebs developer) home with you and use it for the next few days to prevent pneumonias. You may shower, no hot tubs, baths or swimming pools. Please call the office with any questions or concerns such as increasing abdominal pain, fever, chills, shortness of breath, chest pain, leg pain or swelling, or redness or drainage from your incisions. Do not hesitate to contact the office with any questions at . The patient's medical history has been reviewed and they are considered low risk for post op DVT and therefore DVT prophylaxis is not considered necessary. Travel after surgery was reviewed. The patient has not disclosed any travel plans during the first 30 days after surgery and they have been advised that within the first 30 days after surgery any bus, plane, train or car travel over 2 hours in duration is contraindicated due to the possibility of developing blood clots from immobility. Any travel, needs to include periods of ambulation of 10 minutes in duration every 2 hours. The patient was instructed to discuss any plans for travel during this period with their bariatric surgeon. Assessment: stable post op sleeve gastrectomy
--- NOTE | 2022-05-14 10:26 | PM.PNGS ---
Subjective Subjective Date of Service: 05/15/22 Interval history: Patient has mild incisional pain, but was able to ambulate and use the incentive spirometer. She is tolerating phase 1 bariatric diet Physical Exam Vital Signs: Vital Signs: Last Vital Signs Temp 97.1 F 05/14/22 06:35 Pulse 68 05/14/22 06:35 Resp 16 05/14/22 06:35 BP 139/73 05/14/22 06:35 Pulse Ox 96 05/14/22 06:35 O2 Del Method 05/14/22 06:35 BMI result Body Mass Index 38.2 GI: Inspection: Yes normal to inspection, Yes incision (clean, dry and intact) and Yes obesity Palpation (GI): Soft to palpation Extrem: Right lower extremity: normal to inspection (no calf tenderness) Left lower extremity: normal to inspection (no calf tenderness) Objective Data Active Medications Albuterol Sulfate (Albuterol Sulfate 90 Mcg 8 Gm Inhaler) 2 puff INHALE Q4H PRN PRN Reason: Shortness Of Breath Fentanyl (Fentanyl Citrate/Pf 100 Mcg/2 Ml Vial) 25 mcg IVPUSH Q5M PRN; Protocol PRN Reason: Pain, Moderate (Pain Scale 4-6 Hydromorphone HCl (Hydromorphone Hcl 0.5 Mg/0.5 Ml Syringe) 0.25 mg IVPUSH Q5M PRN; Protocol PRN Reason: Pain, Severe (Pain Scale 7-10) Lactated Ringer's (Lr) 1,000 mls @ 100 mls/hr IVCONT .Q10H MARCIA Promethazine HCl 6.25 mg/ (Sodium Chloride) 50.25 mls @ 201 mls/hr IV ONCE PRN PRN Reason: Nausea and Vomiting Ondansetron HCl (Ondansetron Hcl 4 Mg/2 Ml Vial) 4 mg IVPUSH ONCE PRN PRN Reason: Nausea and Vomiting Labs CBC & Chem 7: 05/15/22 05:09 05/15/22 05:09 Labs: Laboratory Results - last 24 hr 05/13/22 11:50 COVID-19 (PAUL) Negative COVID-19 Clin Com See Note Procedures Date of Service Date of Service: 05/15/22 Progress Note: A&P Assessment and plan (1) Obesity: Status: Inactive Assessment and Plan: s/p laparoscopic sleeve gastrectomy and gastropexy Doing well Check am labs. If OK, will discharge home (2) BMI 33.0-33.9,adult: Status: Acute (3) S/P laparoscopic sleeve gastrectomy: Status: Acute (4) GENIA (obstructive sleep apnea): Status: Acute (5) Prediabetes: Status: Acute (6) Factor V deficiency: Status: Acute (7) GERD (gastroesophageal reflux disease): Status: Acute (8) Asthma: Status: Acute (9) Liver fibrosis: Status: Acute (10) Hip pain: Status: Acute Time Spent With Patient Time: Total time spent is greater than 50% in coordination of care (as documented) at patient's floor/unit and/or counseling patient: Quality Stroke Does the patient have a stroke diagnosis?: No VTE Prior VTE?: No VTE Risk Level:: Surgical - moderate VTE Device Contraindication: N/A - Device Ordered VTE Drug Contraindication: Treatment Not Indicated
[2022-05-14] MEDS: Famotidine/PF 20 MG/2 ML VIAL IVPUSH ×2 (10:44→19:49)
[2022-05-14] MEDS: Lactated Ringers 1,000 ML 100 ML IVCONT ×2 (10:44→19:26)
[2022-05-14 10:59] LABS: Hematocrit 36.2 % (37.0-47.0); Hemoglobin 12.3 g/dl (12.0-16.0)
[2022-05-14 11:15] LABS: Anion Gap 19 (12-20); Blood Urea Nitrogen 9 mg/dL (9-16); Calcium 8.8 mg/dL (8.4-10.2); Carbon Dioxide 21 mmol/L (22-29); Chloride 103 mmol/L (96-108); Creatinine Clr Calc Pharmacy 122.4; Estimated Glomerular Filt Rate > 60; Glucose Random 200 mg/dL (60-115); Potassium 3.8 mmol/L (3.3-5.1); Sodium 139 mmol/L (135-145)
[2022-05-14] MEDS: ondansetron HCL 4 MG/2 ML VIAL IVPUSH ×3 (12:08→21:52)
[2022-05-14] MEDS: Metoclopramide HCl 10 MG/2 ML VIAL IVPUSH ×2 (12:09→19:22)
[2022-05-14] MEDS: Acetaminophen 1,000 MG/100 ML PIGGYBACK 16.7 MG IV ×2 (15:22→20:42)
[2022-05-15] VITALS: BP 145/66; PULSE 76; RESP 17; TEMP 36.4; O2SAT 96
[2022-05-15 00:30] VITALS: O2SAT 96
[2022-05-15] MEDS: Acetaminophen 1,000 MG/100 ML PIGGYBACK 16.7 MG IV ×2 (02:38→08:33)
[2022-05-15 04:00] VITALS: BP 166/68; BP 167/72; PULSE 88; RESP 17; TEMP 36.1; O2SAT 96
[2022-05-15] MEDS: Lactated Ringers 1,000 ML 100 ML IVCONT (04:34)
--- NOTE | 2022-05-15 04:55 | PC.NURSE ---
Clinical [employer]is [employer] Instructor Beth Weber notified at 4:41 of PT BP of 166/ 68 and that PT has a slight headache. Instructed to medicate PT for pain.
[2022-05-15] MEDS: HYDROmorphone HCl 0.5 MG/0.5 ML SYRINGE 0.25 MG IVPUSH (05:06)
[2022-05-15] MEDS: ondansetron HCL 4 MG/2 ML VIAL IVPUSH (05:25)
[2022-05-15 05:50] LABS: Basophils Percent Auto 0.1 % (0-2); SCAN SMEAR FLAG 1
[2022-05-15 05:51] LABS: Hematocrit 37.3 % (37.0-47.0); Hemoglobin 12.2 g/dl (12.0-16.0); Imm Gran Abs Auto 0.04 X10*3/uL (0.00-0.03); Imm Gran Pct Auto 0.3 % (0.0-0.4); Lymphocytes Absolute Auto 0.8 X10*3/uL (1.2-4.9); Lymphocytes Percent Auto 6.6 % (20-40); MANUAL DIFF FLAG SCAN; Mean Corpuscular HGB Conc 32.7 g/dl (31.0-35.0); Mean Corpuscular Volume 91.9 fL (80.0-98.0); Mean Platelet Volume 13.8 fL (9.4-12.3); Monocytes Absolute Auto 0.6 X10*3/uL (0.1-1.2); Neutrophils Absolute Auto 10.9 x10*3/uL (2.0-8.3); PLT CLUMP 1; Red Blood Count 4.06 X10*6/uL (4.20-5.50); Red Cell Distribution Width 12.9 % (11.0-16.0)
[2022-05-15 05:55] LABS: PLT ABN DIST 1
[2022-05-15 06:08] LABS: Anion Gap 18 (12-20); Blood Urea Nitrogen 7 mg/dL (9-16); Calcium 9.7 mg/dL (8.4-10.2); Carbon Dioxide 22 mmol/L (22-29); Chloride 105 mmol/L (96-108); Creatinine Clr Calc Pharmacy 120.7; Estimated Glomerular Filt Rate > 60; Glucose Random 111 mg/dL (60-115); Platelet Count 163 X10*3/uL (160-400); Potassium 3.8 mmol/L (3.3-5.1); SLIDE REVIEW VERIFIED; Sodium 141 mmol/L (135-145); White Blood Count 12.4 X10*3/uL (4.8-10.8)
[2022-05-15 06:53] VITALS: BP 123/59; PULSE 76; RESP 18; TEMP 36.4; O2SAT 96
[2022-05-15] MEDS: Famotidine/PF 20 MG/2 ML VIAL IVPUSH (08:34)
--- NOTE | 2022-05-15 09:50 | MHC.CM.PN ---
Addendum entered by Maryanne Javed, RN 05/15/22 10:12: [facility] DOES NOT HAVE A COPY OF HCP ON FILE, CM ATTEMPTED TO MEET W/PT TO COMPLETE A NEW HCP HOWEVER PT HAS LEFT UNIT. Original Note: EMR REVIEWED, PT ADMEITTED S/P LAP SLEEVE GASTRECTOMY, CM MET W/PT AND WHO IS AT BEDSIDE AND PT'S RIDE HOME, PT REPORTS SHE LIVES W/ AND 2 YOUNGER CHILDREN, PT IS INDEP W/ALL CARE, DENIES USE OF DME/HOME SERVICES, PT VERIFIES PCP IS Prerna SARGENT&PrernaX1 AND PFIZER X1, PT RPEORTS HCP IS [facility] AND [place] [facility] [place] CM TO COTACT MEDICAL RECORDS. ANTIC D/C TODAY HOME SELF-CARE W/ FOR TRANSPORT
--- NOTE | 2022-05-15 13:28 | HO.POSTANES ---
Post Anesthesia Evaluation Post Anesthesia Evaluation Vital Signs: Vital Signs Temp Pulse Resp BP Pulse Ox O2 Del Method 05/15/22 08:34 Room Air 05/15/22 06:53 97.5 F 76 18 123/59 L 96 Room Air 05/15/22 04:00 166/68 H 05/15/22 04:00 96.9 F 88 17 167/72 H 96 Room Air Anesthesia: General Endotracheal-GETA Mental Status: Awake Pain Control: Satisfactory Nausea/Vomiting: None Hydration: Adequate Anesthesia-Related Issues: No Anes. Related Issues
== END 2022-05-15 10:18 | disposition home or self-care (01) | DRG 403 ==
LOC: HO.SSSA 10:24 → HO.S3 12:57
PROVIDERS: Physician Assistant; Physician Assistant Surgical; Admitting Provider Surgery; PCP Nurse Practitioner Gerontology; Visit Provider Surgery
PROC: 0DB64Z3 Excision of Stomach, Percutaneous Endoscopic Approach, Vertical (ICD-10-PCS; CPT 43845; principal; 2022-05-14 07:30)
DX: E66.01 Morbid (severe) obesity due to excess calories (principal); D68.51 Activated protein C resistance; K74.00 Hepatic fibrosis, unspecified; K76.0 Fatty (change of) liver, not elsewhere classified; K21.9 Gastro-esophageal reflux disease without esophagitis; R73.03 Prediabetes; J45.909 Unspecified asthma, uncomplicated; G47.33 Obstructive sleep apnea (adult) (pediatric); M25.559 Pain in unspecified hip; Z68.36 Body mass index [BMI] 36.0-36.9, adult; Z20.822 Contact with and (suspected) exposure to COVID-19; Z90.710 Acquired absence of both cervix and uterus; Z88.8 Allergy status to other drugs, medicaments and biological substances; Z79.899 Other long term (current) drug therapy
CPT/HCPCS: 36415; 80048; 85014; 85018; 85025; 86850; 86900; 86901; 87635; 88307; 88342; A4649; C9088; J0131; J1100; J1170; J1956; J2250; J2405; J2765; J2795; J3010

== ENCOUNTER → 2022-07-17 09:46 | Outpatient (BNVA) | payer BC, SELFPAY | PROVIDERS: PCP Nurse Practitioner Gerontology; Visit Provider Physician Assistant | DX: Z98.84 Bariatric surgery status (principal) ==

== ENCOUNTER → 2022-08-14 09:46 | Outpatient (BNVA) | payer BC, SELFPAY | PROVIDERS: PCP Nurse Practitioner Gerontology; Referring Provider Nurse Practitioner Gerontology; Visit Provider Physician Assistant | DX: Z98.84 Bariatric surgery status (principal) ==

== ENCOUNTER → 2022-09-30 08:58 | Outpatient (BNVA) | payer BC, SELFPAY | PROVIDERS: PCP Nurse Practitioner Gerontology; Visit Provider Physician Assistant | DX: Z13.89 Encounter for screening for other disorder (principal) ==

== ENCOUNTER 2022-11-11 08:44 | Outpatient (REF) | payer BC, SELFPAY ==
[2022-11-11 09:54] LABS: MANUAL DIFF FLAG NO
[2022-11-11 11:50] LABS: Basophils Percent Auto 0.2 % (0-2); Eosinophils Percent Auto 0.5 % (0-4); Hemoglobin 12.7 g/dl (12.0-16.0); Imm Gran Abs Auto 0.01 X10*3/uL (0.00-0.03); Imm Gran Pct Auto 0.2 % (0.0-0.4); Lymphocytes Absolute Auto 1.9 X10*3/uL (1.2-4.9); Lymphocytes Percent Auto 34.7 % (20-40); Mean Corpuscular HGB Conc 32.6 g/dl (31.0-35.0); Mean Corpuscular Hemoglobin 31.2 pg (27.0-33.0); Mean Corpuscular Volume 95.8 fL (80.0-98.0); Mean Platelet Volume 12.6 fL (9.4-12.3); Monocytes Absolute Auto 0.3 X10*3/uL (0.1-1.2); Monocytes Percent Auto 5.4 % (2-11); Neutrophils Absolute Auto 3.3 x10*3/uL (2.0-8.3); Platelet Count 183 X10*3/uL (160-400); Red Blood Count 4.07 X10*6/uL (4.20-5.50); Red Cell Distribution Width 13.5 % (11.0-16.0); White Blood Count 5.5 X10*3/uL (4.8-10.8)
[2022-11-11 11:52] LABS: Estimated Average Glucose 108 mg/dL; Hemoglobin A1c % 5.4 %
[2022-11-11 12:41] LABS: Alanine Aminotransferase 15 U/L (0-31); Albumin Level 4.6 g/dL (3.5-5.0); Alkaline Phosphatase 77 U/L (39-117); Anion Gap 13 (12-20); Aspartate Amino Transferase 16 U/L (5-31); Bilirubin Total 0.8 mg/dL (0.0-1.0); Blood Urea Nitrogen 17 mg/dL (9-16); C Reactive Protein 0.31 mg/dL (< or = 0.50); Calcium 9.6 mg/dL (8.4-10.2); Carbon Dioxide 28 mmol/L (22-29); Chloride 106 mmol/L (96-108); Cholesterol 220 mg/dL; Estimated Glomerular Filt Rate > 60; Glucose Random 87 mg/dL (60-115); HDL Cholesterol 59 mg/dL; Iron 86 mcg/dL (30-160); LDL Cholesterol Calculated 150 mg/dl; Percent Iron Saturation 22 % (15-50); Potassium 4.8 mmol/L (3.3-5.1); Sodium 142 mmol/L (135-145); Total Iron Binding Capacity 388 mcg/dL (228-428); Total Protein 7.2 g/dL (6.5-8.0); Triglycerides 55 mg/dL; Unsaturated Iron Binding 302 ug/dL
[2022-11-11 13:02] LABS: Ferritin 37 ng/mL (10-250); Folate > 20.0 ng/mL (> or = 4.0); Insulin 5 uU/mL (2-29); TSH reflex Free T4 1.35 uIU/mL (0.32-4.0); Vitamin B12 935 pg/mL (200-900); Vitamin D 25-OH Total 41.4 ng/mL (>30)
[2022-11-13 14:28] LABS: Calcium (PTHI) 9.8 mg/dL (8.6-10.2); PTHI 54 pg/mL (16-77)
[2022-11-14 17:33] LABS: Zinc 127 mcg/dL (60-130)
[2022-11-15 06:08] LABS: Vitamin A 35 mcg/dL (38-98)
[2022-11-16 15:39] LABS: Vitamin B1 22 nmol/L (8-30)
== END 2022-11-11 08:45 | disposition home or self-care (01) ==
LOC: HO.LAB 08:44
PROVIDERS: PCP Nurse Practitioner Gerontology; Visit Provider Physician Assistant
DX: E66.3 Overweight (principal); K74.00 Hepatic fibrosis, unspecified; Z98.84 Bariatric surgery status; R73.03 Prediabetes
CPT/HCPCS: 36415; 80053; 80061; 82306; 82607; 82728; 82746; 83036; 83525; 83540; 83970; 84425; 84443; 84590; 84630; 85025; 86140

== ENCOUNTER 2023-03-19 16:25 | Outpatient (AMB) | payer BC, SELFPAY ==
--- NOTE | 2023-03-19 16:15 | A.OFFVIS_ITS ---
Intake VS Expanded 03/19/23 16:17 Height 5 ft 6 in Weight 165 lb BMI 26.6 Intake Visit Reasons: VIDEO PO LSG 05/14/22 Allergies cefaclor [From [facility]] Adverse Reaction (Mild, Verified 11/11/22 08:50) Headache Medication List - Last Reconciled 03/19/23 by Beth Weber PA-C acetaminophen 650 mg PO Q4H PRN calcium citrate 200 mg PO DAILY docusate sodium (Colace) 100 mg PO BID PRN multivitamin 1 tab PO DAILY HPI HPI Comments History of Present Illness Details Pt is now 10 months s/p LSG. Was on vacation for a few weeks, has not lost weight recently. Meal plan: wakes up 6am 8am - shake 11 am - yogurt with berries 2pm- bar may have half yogurt also 6pm - 3 oz protein and 2 oz vegetable 8pm - shake or bar Exercise - Cross [employer] 6d/ week, 500 - 900 calories - just started agian this week. [facility] Medical History (Updated 03/19/23 @ 16:37 by Beth Weber PA-C) Abnormal EKG Adjustment disorder Anemia Asthma BMI 36.0-36.9,adult Borderline high cholesterol COVID-19 vaccine series completed Factor V deficiency Factor V deficiency Fatty liver GERD (gastroesophageal reflux disease) H/O complications due to general anesthesia Hip pain History of COVID-19 Hypothyroid Morbid obesity Obesity GENIA (obstructive sleep apnea) Prediabetes Surgical History Hx of hysterectomy Hx of tonsillectomy Hx of wisdom tooth extraction Family History Mother Breast cancer Thyroid condition Father Kidney cancer, primary, with metastasis from kidney to other site Prostate cancer Diabetes Sister Factor 5 Leiden mutation, heterozygous Pre-diabetes Heart problem Son No problems noted. Son No problems noted. Daughter No problems noted. Daughter Seizures Social History Are you a primary home care nurse to a significant other at home: No Do you presently have visiting nurse or other home services: No Alcohol intake: never Patient Tobacco Use Status: Never used Tobacco Assessment & Plan Assessment & Plan (1) Overweight: Code(s): E66.3 - Overweight Plan: Pt is 10 months s/p LSG with 97 lb weight loss. No weight loss this summer wwhile on vacation. Has restarted Cross fit now and should see change in weight now. Has increased frequency of eating - and eating too much 8am - shake 11 am - yogurt with betries 2pm - 3 oz and 3 oz 6pm - 3 oz and 3 oz Will text me in 2-3 weeks with weight. Next appt at 1 year end of April. I spent 30 minutes in total speaking with the patient via video conference counseling , reviewing records and charting in patients chart. . (2) S/P laparoscopic sleeve gastrectomy: Code(s): Z98.84 - Bariatric surgery status Telehealth Telehealth Location of provider rendering services: practice address Location of patient: address on file Patient Identification confirmed using: Name, : Yes Telehealth method: video Patient verbally consented to treatment: Yes Patient verbally consented to billing insurance company: Yes Patient informed of any privacy concerns related to visit: Yes Coding Level of Care Code Tele Est Pt Level 4 (42680) Diagnoses Overweight E66.3 S/P laparoscopic sleeve gastrectomy Z98.84
[2023-03-19 16:17] VITALS: BMI 26.6
== END 2023-03-19 16:40 | disposition home or self-care (01) ==
LOC: HO.HBS 16:25
PROVIDERS: PCP Nurse Practitioner Gerontology; Visit Provider Physician Assistant
DX: E66.3 Overweight (principal); Z68.26 Body mass index [BMI] 26.0-26.9, adult; Z90.3 Acquired absence of stomach [part of]; Z98.84 Bariatric surgery status
CPT/HCPCS: 99214

== ENCOUNTER → 2023-03-19 16:25 | Outpatient (BNVA) | payer BC, SELFPAY | PROVIDERS: PCP Nurse Practitioner Gerontology; Visit Provider Physician Assistant ==

== ENCOUNTER 2023-10-29 14:25 | Outpatient (AMB) | payer BC, SELFPAY ==
--- NOTE | 2023-10-29 14:27 | A.OFFVIS_ITS ---
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 She is approximately 18 months status post sleeve gastrectomy performed 05/14/2022. She was last seen in the office in February of 2023 with a weight of 165 lb and a BMI of 26.6. Today's weight is 178 lb with a BMI of 28.7. She states she was on a cruise to [place] and has had weight gain since. She has had sinus pressure since the trip as she had covid upon return. States her goal is to lose more weight with a goal of 145-155 pounds. Meal plan: Premier protein RTD 2 eggs or yogurt w blueberries ZP bar meal 5 oz protein and 1 cup veg Drinkin oz water Exercise: [employer], weight and cardio 5 days per week, 1 hour treadmill sometimes on weekends. Any post op complications: None GENIA: Never DM: Never HTN: Never Hyperlipidemia: Resolved GERD:?0-5 scale ??0 = no symptoms ??1 = symptoms noticeable but not bothersome 2 =symptoms bothersome but not daily ? 3 = symptoms bothersome and daily 4 = symptoms affect daily activities 5 = symptoms are incapacitating, unable to do daily activities ? How bad is the heartburn: 0 ? Heartburn while lying down: 0 ? Heartburn when standing up: 0 ? Heartburn after meals: 0 ? Does heartburn change your diet: 0 ? Does heartburn wake you up from sleep: 0 ? Do you have difficulty swallowin ? Do you have pain with swallowin ? If you take medicine for your reflux, does this affect your daily life: 0 Satisfaction with present condition - satisfied or not satisfied: not satisfie d, wants to lose more weight PFSH Medical History Hip pain Asthma Factor V deficiency Factor V deficiency BMI 36.0-36.9,adult Obesity GENIA (obstructive sleep apnea) H/O complications due to general anesthesia Hypothyroid Anemia Fatty liver COVID-19 vaccine series completed History of COVID-19 Borderline high cholesterol Adjustment disorder Abnormal EKG Prediabetes GERD (gastroesophageal reflux disease) Morbid obesity Surgical History Hx of wisdom tooth extraction Hx of hysterectomy Hx of tonsillectomy Family History Mother Breast cancer Thyroid condition Father Kidney cancer, primary, with metastasis from kidney to other site Prostate cancer Diabetes Sister Factor 5 Leiden mutation, heterozygous Pre-diabetes Heart problem Son No problems noted. Son No problems noted. Daughter No problems noted. Daughter Seizures Social History Are you a primary care management specialist to a significant other at home: No Do you presently have visiting nurse or other home services: No Alcohol intake: never Patient Tobacco Use Status: Never used Tobacco Assessment & Plan Assessment & Plan (1) S/P laparoscopic sleeve gastrectomy: Code(s): Z98.84 - Bariatric surgery status Plan: Overall, doing fairly well. Will check 18 month postop labs. Change meal plans slightly Premier protein, 1 scoop in 10-12 oz of almond milk over 2 hours Two eggs or yogurt with berries Zone perfect bar Six forks of protein and 8 forks of vegetables Add 1 day of treadmill on the weekends Return to clinic 6 weeks. 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00 - Hepatic fibrosis, unspecified, R73.03 - Prediabetes, Z98.84 - Bariatric surgery status Lipid Panel Today 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, E66.3 - Overweight, K74.00 - Hepatic fibrosis, unspecified, R73.03 - Prediabetes, Z98.84 - Bariatric surgery status Complete Blood Count Auto Diff Today 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, E66.3 - Overweight, K74.00 - Hepatic fibrosis, unspecified, R73.03 - Prediabetes, Z98.84 - Bariatric surgery status Vitamin B12 and Folate Today 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, E66.3 - Overweight, K74.00 - Hepatic fibrosis, unspecified, R73.03 - Prediabetes, Z98.84 - Bariatric surgery status Vitamin A Today 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, E66.3 - Overweight, K74.00 - Hepatic fibrosis, unspecified, R73.03 - Prediabetes, Z98.84 - Bariatric surgery status C Reactive Protein Today 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, E66.3 - Overweight, K74.00 - Hepatic fibrosis, unspecified, R73.03 - Prediabetes, Z98.84 - Bariatric surgery status TSH reflex Free T4 Today 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, E66.3 - Overweight, K74.00 - Hepatic fibrosis, unspecified, R73.03 - Prediabetes, Z98.84 - Bariatric surgery status Vitamin D 25-OH Total Today 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
[2023-10-29 14:35] VITALS: BP 129/60; PULSE 58; TEMP 36.5; O2SAT 99; BMI 28.7
== END 2023-10-29 15:12 | disposition home or self-care (01) ==
PROVIDERS: PCP Nurse Practitioner Gerontology; Visit Provider Physician Assistant Surgical
DX: E66.3 Overweight (principal); Z68.28 Body mass index [BMI] 28.0-28.9, adult; Z90.3 Acquired absence of stomach [part of]; Z98.84 Bariatric surgery status
CPT/HCPCS: 99214

== ENCOUNTER → 2023-10-29 14:25 | Outpatient (BNVA) | payer BC, SELFPAY | PROVIDERS: PCP Nurse Practitioner Gerontology; Visit Provider Physician Assistant Surgical ==

== ENCOUNTER 2023-10-31 07:12 | Outpatient (REF) | payer BC, SELFPAY ==
[2023-10-31 07:26] LABS: MANUAL DIFF FLAG NO
[2023-10-31 08:03] LABS: Basophils Percent Auto 0.2 % (0-2); Eosinophils Percent Auto 0.5 % (0-4); Hematocrit 37.1 % (37.0-47.0); Hemoglobin 12.6 g/dl (12.0-16.0); Imm Gran Abs Auto 0.01 X10*3/uL (0.00-0.03); Imm Gran Pct Auto 0.2 % (0.0-0.4); Lymphocytes Absolute Auto 2.2 X10*3/uL (1.2-4.9); Lymphocytes Percent Auto 35.9 % (20-40); Mean Corpuscular Hemoglobin 32.7 pg (27.0-33.0); Mean Corpuscular Volume 96.4 fL (80.0-98.0); Monocytes Absolute Auto 0.4 X10*3/uL (0.1-1.2); Monocytes Percent Auto 6.1 % (2-11); Neutrophils Absolute Auto 3.6 x10*3/uL (2.0-8.3); Neutrophils Percent Auto 57.1 % (45-73); Platelet Count 194 X10*3/uL (160-400); Red Blood Count 3.85 X10*6/uL (4.20-5.50); Red Cell Distribution Width 12.3 % (11.0-16.0); White Blood Count 6.2 X10*3/uL (4.8-10.8)
[2023-10-31 08:27] LABS: Estimated Average Glucose 108 mg/dL; Hemoglobin A1c % 5.4 % (<6.0)
[2023-10-31 08:28] LABS: Anion Gap 12 (12-20); Blood Urea Nitrogen 15 mg/dL (9-16); C Reactive Protein 0.23 mg/dL (< or = 0.50); Calcium 9.4 mg/dL (8.4-10.2); Carbon Dioxide 26 mmol/L (22-29); Chloride 107 mmol/L (96-108); Cholesterol 225 mg/dL (<200); Estimated Glomerular Filt Rate > 60; Glucose Random 91 mg/dL (60-115); HDL Cholesterol 62 mg/dL (>40); Iron 182 mcg/dL (30-160); LDL Cholesterol Calculated 147 mg/dL (<100); Percent Iron Saturation 47 % (15-50); Potassium 4.1 mmol/L (3.3-5.1); Sodium 141 mmol/L (135-145); Total Iron Binding Capacity 388 mcg/dL (228-428); Triglycerides 81 mg/dL (<150); Unsaturated Iron Binding 206 ug/dL
[2023-10-31 08:46] LABS: Ferritin 53 ng/mL (10-250); TSH reflex Free T4 1.62 uIU/mL (0.32-4.0); Vitamin D 25-OH Total 27.7 ng/mL (>30)
[2023-10-31 08:48] LABS: Folate 13.8 ng/mL (> or = 4.0); Vitamin B12 710 pg/mL (200-900)
[2023-10-31 09:17] LABS: Insulin 5 uU/mL (2-29)
[2023-11-04 12:13] LABS: Zinc 80 mcg/dL (60-130)
[2023-11-05 05:58] LABS: Vitamin A 50 mcg/dL (38-98)
[2023-11-06 16:28] LABS: Vitamin B1 16 nmol/L (8-30)
== END 2023-10-31 07:13 | disposition home or self-care (01) ==
LOC: HO.LAB 07:12
PROVIDERS: Visit Provider Physician Assistant Surgical
DX: E66.3 Overweight (principal); D68.2 Hereditary deficiency of other clotting factors; R73.03 Prediabetes; K74.00 Hepatic fibrosis, unspecified; Z98.84 Bariatric surgery status
CPT/HCPCS: 36415; 80048; 80061; 82306; 82607; 82728; 82746; 83036; 83525; 83540; 84425; 84443; 84590; 84630; 85025; 86140

== ENCOUNTER 2025-02-10 08:10 | Outpatient (REF) | payer BC, SELFPAY ==
[2025-02-10 09:26] LABS: MANUAL DIFF FLAG NO
[2025-02-10 09:42] LABS: Hematocrit 36.5 % (37.0-47.0); Hemoglobin 12.6 g/dl (12.0-16.0); Imm Gran Abs Auto 0.03 X10*3/uL (0.00-0.03); Imm Gran Pct Auto 0.4 % (0.0-0.4); Lymphocytes Absolute Auto 1.8 X10*3/uL (1.2-4.9); Mean Corpuscular HGB Conc 34.5 g/dl (31.0-35.0); Mean Corpuscular Hemoglobin 32.1 pg (27.0-33.0); Mean Corpuscular Volume 92.9 fL (80.0-98.0); NRBC Abs Auto 0.000 X10*3/uL (0.0-0.012); NRBC Pct Auto 0.0 /100WBC (0.0-0.2); Platelet Count 183 X10*3/uL (160-400); Red Blood Count 3.93 X10*6/uL (4.20-5.50); White Blood Count 8.3 X10*3/uL (4.8-10.8)
[2025-02-10 09:57] LABS: Hemoglobin A1C 115.4455 umol/L; Total Hemoglobin (HGBA1C) 3201.0635 umol/L
[2025-02-10 10:19] LABS: Anion Gap 13 (12-20); Blood Urea Nitrogen 18 mg/dL (9-16); Calcium 9.8 mg/dL (8.4-10.2); Carbon Dioxide 25 mmol/L (22-29); Chloride 106 mmol/L (96-108); Cholesterol 252 mg/dL (<200); Estimated Glomerular Filt Rate > 60; HDL Cholesterol 63 mg/dL (>40); Iron 110 mcg/dL (30-160); Percent Iron Saturation 31 % (15-50); Potassium 4.3 mmol/L (3.3-5.1); Sodium 140 mmol/L (135-145); Total Iron Binding Capacity 356 mcg/dL (228-428); Triglycerides 123 mg/dL (<150); Unsaturated Iron Binding 246 ug/dL
[2025-02-10 10:40] LABS: Ferritin 30 ng/mL (10-250)
[2025-02-10 10:46] LABS: Folate 14.3 ng/mL (> or = 4.0); Vitamin B12 1069 pg/mL (200-900)
== END 2025-02-10 08:11 | disposition home or self-care (01) ==
LOC: HO.LAB 08:10
PROVIDERS: PCP Nurse Practitioner Gerontology; Visit Provider Physician Assistant Surgical
DX: Z98.84 Bariatric surgery status (principal); K74.00 Hepatic fibrosis, unspecified
CPT/HCPCS: 36415; 80048; 80061; 82306; 82607; 82728; 82746; 83036; 83525; 83540; 84425; 84443; 84590; 84630; 85025; 86140

== ENCOUNTER 2025-02-10 08:10 | Outpatient (AMB) | payer BC, SELFPAY ==
--- OUTSIDE RECORDS SUMMARY | 2025-02-10 08:18 | XMS_ITS | Clinical Summary ---
Author Organization [facility] Address [address] [place] [address] Care Team Providers Care Pattern Hand Name Role Phone Pcp, No Primary Care Provider Unavailabl e Allergies Active Allergy Reactions Criticality Noted Date Comments Cefaclor Hives Medium 04/17/2020 Medications No known medications Social History Tobacco Use Types Packs/Day Years Used Date Smoking Tobacco: Never Smokeless Tobacco: Never Alcohol Use Standard Drinks/Week Comments Not Currently 0 (1 standard drink = 0.6 oz pur e alcohol) Comments Unknown Sex and Gender Information Value Date Recorded Sex Assigned at Not on file Legal Sex Female 3:33 PM EDT Gender Identity Not on file Sexual Orientation Not on file Last Filed Vital Signs Vital Sign Reading Time Taken Comments Blood Pressure 134/78 04/17/2020 6:16 PM EDT Pulse 84 04/17/2020 6:16 PM EDT Temperature 36.2 C (97.1 F) 04/17/2020 6:16 PM EDT Respiratory Rate - - Oxygen Saturation 97% 04/17/2020 6:16 PM EDT Inhaled Oxygen Concentration - - Weight 113 kg (250 lb) 04/17/2020 6:16 PM EDT Height 167.6 cm (5' 6 ) 04/17/2020 6:16 PM EDT Body Mass Index 40.35 04/17/2020 6:16 PM EDT Plan of Treatment Health Maintenance Due Date Last Done Comments Hepatitis C Virus Screening 1976 HIV Screening 1989 DTaP/Tdap/Td Vaccines (1 - Tdap) 1995 Hepatitis B Vaccines (1 of 3 - 19+ 3-dose series) 1995 Pap Smear (Ages 21-65) 1997 Mammogram 2016 Colonoscopy 2021 COVID-19 Vaccine (2023-2 5 season) 2024 Influenza Vaccine 02/18/2025 Pneumococcal Vaccine: Pediat marybel (0-5 Years) and At-Risk Patients (6 to 49 Years) Aged Out No longer eligible b ased on patient's age to complete this topic Insurance [facility] - PPO Care Teams Pattern Hand Relationship Specialty Start Date End Date Pcp, No PCP - General General Medicine 04/17/20
--- OUTSIDE RECORDS SUMMARY | 2025-02-10 08:19 | XMS_ITS | Data Portability ---
Author Organization [place] - [facility], Allergy Address [address] [place] [id number] Assessment Encounter Date Assessment Date Assessment LastModified by Organization Details LastModified Time 09/03/2024 09/03/2024 Patient describes left mid face pain syndrome beginning in February and constant without any relief. No change with antibiotics or steroids. Not associated with a rash. Examination today including nasal endoscopy shows a septal deflection to the left with no purulence or polyps or lesions. Suspicion for atypical migraine versus V2 branch trigeminal neuralgia were discussed. Rule out with additional imaging CT sinus noncontrast is requested. We will also try to locate her MRI from her primary care. Follow-up to review results [email or web address] Not available 09/03/2024 13:11:03 10/06/2024 10/06/2024 Patient describes left mid face pain syndrome beginning in February and constant without any relief. No change with antibiotics or steroids. Not associated with a rash. Examination 09/03/24 including nasal endoscopy shows a septal deflection to the left with no purulence or polyps or lesions. Suspicion for atypical migraine versus V2 branch trigeminal neuralgia were discussed. Additional imaging today with CT sinus noncontrast was benign We located her MRI from her primary care and it was benign with no lesions to better explain the symptoms. Placed referral to Dr Fong for eval for trigeminal neuralgia [email or web address] Not available 10/06/2024 11:49:37 Plan of Treatment Reminders Order Date Submit Date Provider Last Modified By Organization Details Last Modified Time Details Appointments None recorded. Lab None recorded. Referral neurologi ayan surgeon referral - eval for left trigemina l neuralgia with benign MRI and CT BOOKED WITH DR. FONG 2024 025 [email or web address] [facility], [address] [place] [address] Dr, [place], [address], 11:08:18 Procedures None recorded. Surgeries None recorded. Imaging CT, sinuses, w/o contrast - ct sinus xoran 2024 025 [email or web address] Not available 5 09:14:02 CT, sinuses, w/o contrast - ct sinus xoran 2024 025 [email or web address] Not available 09:36:25 Medication Orders None recorded. Patient TargetsNo targets recorded. Patient InstructionsNo instructions recorded. Reason for Referral Neurological Surgeon Referra l for Atypical facial pain eval for left trigeminal neuralgia with benign MRI and CT BOOKED WITH DR. FONG Referring Physician: Ari Mcclellan, Otolaryngology, Encounter Date: 10/06/2024 Results Created Date Observation Date Name Description Value Unit Range Abnormal Flag Note LastModifiedBy Organization Detail LastModifiedTime 09/06/1910/16/2023 MRI, brain , w/wo contr ast No observ ation record ed. [email or web address] Ari Mcclellan MD [address] [place] [address], [id number], 10/05/2024 09:38:40 Result Notes None recorded. Problems Name Problem SNOMED Code Status Onset Date Resolution Date Notes Provider Name and Address Organization Details Recorded Time Atypical facial pain 23059217 Active 025 ARI MCCLELLAN MD [address] [place] [address], [phone] , [facility] 13:08:49 Problem Notes None recorded. Procedures Surgical History Date Name Laterality Status Provider Name and Address Organization Details Recorded Time 10/06/2024 CT sinus - Xoran completed ARI MCCLELLAN MD [address] [place] [address],[address], [phone], [facility] 10/06/2024 11:47:01 09/03/2024 NasalEndosc opy_DP completed ARI MCCLELLAN MD [address] [place] [address],[address], [phone], [place] - [facility] 09/03/2024 13:07:19 Imaging Results None recorded. Procedure Notes None recorded. Medical Equipment None Reported. Allergies Allergen ID Allergen Name Allergen Category Reaction Reaction Severity Criticality Documentation Date Start Date Code Code System Note Provider Name and Address Organization Details Recorded Time 662118 Ceclor medicatio n Not available Not available Not available 09/03/2024 12302 5 RxNorm Abby lacey [place] - [facility] 12:54:55 Medications Name Sig Start Date Stop Date Status Note LastModified by Organization Details LastModified Time azithromyc in 250 mg tablet TAKE 2 TABLET (ORAL) TAKE 2 PILLS DAY 1 THEN 1 PILL DAYS 2-5 09/03 completed Not Available Not Available Not Available polymyxin B sulfate 10,000 unit-trime thoprim 1 mg/mL eye drops INSTILL 1 DROP TO (OPHTHAL MARK (EYE)) 4 TIMES PER DAY FOR 7 DAYS 09/03 completed Not Available Not Available Not Available methylpred nisolone 4 mg tablets in a dose pack TAKE 6 TABLETS ON DAY 1 DIRECTED ON PACKAGE AND DECREASE BY 1 TAB EACH DAY FOR A TOTAL OF 6 DAYS 09/03 completed Not Available Not Available Not Available amoxicilli n 875 mg-potassi um clavulanat e 125 mg tablet TAKE 1 TABLET BY MOUTH EVERY 12 HOURS FOR 10 DAYS 09/03 completed Not Available Not Available Not Available Advil active As needed Not Available Not Available Not Available Tylenol active As needed Not Available Not Available Not Available Vitals Date Recorded Body weight Body mass index (BMI) Body height Provider Name and Address Organization Details Last Updated DateTime 09/03/2024 10600.63 g 29.1 kg/m2 167.64 cm Abby Kevin [place] - [facility] 09/03/2024 12:53:29 Date Recorded Body height Provider Name an d Address Organization Details Last Updated DateTime 10/06/2024 167.64 cm NAV MACY [place] - [facility] 10/06/2024 11:34:36 Social History None recorded. Functional Status None recorded. Mental Status None recorded. Family History Nothing Reported. Medical History Condition Response Bleeding Disorder Y Anemia Y Gynecological HistoryNo gynecological history recorded. Obstetrics History GPAL:G 0 P 0 0 0 0 Past Encounters Encounter ID Performer Location Encounter Start Date Encounter Closed Date Diagnosis/Indication Diagnosis SNOMED-CT Code Diagnosis ICD10 Code Diagnosis Note [id number] ARI MCCLELLAN MD [facility] [address] [place] [address] 09/03/2024 12:25:03 09/03/2024 13:10:43 Atypical facial pain 49091073 G50.1 [id number] ARI MCCLELLAN MD [facility] [address] [place] [address] 10/06/2024 10:44:05 10/06/2024 11:52:57 Atypical facial pain 63590377 G50.1 Health Concerns Section Related Observation LastModified by Organization Detai ls LastModified Time None Recorded Concern Status LastModified by Organization Details LastModified Time None Recorded Advance Directives Directive None Recorded Payers Insurance Date Sequence Insurance Name Policy Number Policy Curtis Covered Member ID Curtis Member ID Guarantor Name 10/06/2024 1 [employer] BLUE [employer]OSS [id number] 1 Fredi Mooney [id number] Suzi Mooney 10/06/2024 1 [place] [id number] 1 Fredi Mooney [id number] Suzi Mooney Notes Date Note Type Note Provider Name and Address Organization Details Recorded Time 09/03/2024 text/html 02/2024 left faci al pain below eyepain triggers nauseasx are constanttrial of abx and steroidstooth pain - dental eval was normalvision change - was given glassesMRI head - report not available - was told it is inconclusiveclear rhinorrheadoes not recall a rash ARI MCCLELLAN MD [address] [place] [address], [phone], [facility] - [facility] 09/03/2024 13:11:52 10/06/2024 text/html 02/2024 left faci al pain below eyepain triggers nauseasx are constanttrial of abx and steroidstooth pain - dental eval was normalvision change - was given glassesclear rhinorrheadoes not recall a rash 10/16/23 MRI head w/wo< Noblenormal 10/06/[address] sinus - benign, mild mucosal thickening left sphenoid, septal spur to left PV 09/03/24 Eleuterio nasal endoscopy - septum to left, benign. request ct sinus r/o trigeminal neuralgia, locate MRI results ARI MCCLELLAN MD [address] [place] [address], [place], [phone], [facility] - [facility] 10/06/2024 11:50:05 OBGyn Episode No OBEpisode recorded.
--- NOTE | 2025-02-10 08:33 | A.OFFVIS_ITS ---
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 She is approximately 2 years 9 months post sleeve gastrectomy performed on 05/14/2022. She was last seen in the office on 10/29/2023 with a weight of 178 lb and a BMI of 28.7, prior to that she was seen in February of 2023 with a weight of 165 lb. Weight today is 197.4 lb with a BMI of 31.9. At her last visit, she was given a meal plan and exercise plan and follow-up visit in 6 weeks. She states that since last being seen, approximately 15 months ago, she has been traveling for her children to [place] and [place]. She additionally developed le ft facial pain that is felt to be secondary to trigeminal neuralgia. She has seen multiple physicians and continues to undergo workup for this. As a result of all of the above, she has had difficulty maintaining a consistent meal plan and exercise plan and ultimately regained weight. She is here to improve upon those dynamics. Taking MVI and Lenny + D premier protein shake for breakfast rtd or 1 scoop and another shake in the afternoon with 2 scoops. finnish yogurt, meal at night not tracking forks drinking 40 oz water no soda or juice meal plan: Premier protein, 1 scoop in 10-12 oz of almond milk over 2 hours Two eggs or yogurt with berries Zone perfect bar Six forks of protein and 8 forks of vegetables exercise plan: crossfit 5 days per week, 350-450 calories [facility] Medical History Hip pain Asthma Factor V deficiency Factor V deficiency BMI 36.0-36.9,adult Obesity GENIA (obstructive sleep apnea) H/O complications due to general anesthesia Hypothyroid Anemia Fatty liver COVID-19 vaccine series completed History of COVID-19 Borderline high cholesterol Adjustment disorder Abnormal EKG Prediabetes GERD (gastroesophageal reflux disease) Morbid obesity Surgical History Hx of wisdom tooth extraction Hx of hysterectomy Hx of tonsillectomy Family History Mother Breast cancer Thyroid condition Father Kidney cancer, primary, with metastasis from kidney to other site Prostate cancer Diabetes Sister Factor 5 Leiden mutation, heterozygous Pre-diabetes Heart problem Son No problems noted. Son No problems noted. Daughter No problems noted. Daughter Seizures Social History Are you a primary career manager to a significant other at home: No Do you presently have visiting nurse or other home services: No Alcohol intake: never Patient Tobacco Use Status: Never used Tobacco Physical Exam Const General: healthy appearing and no acute distress Resp Effort & Inspection: normal respiratory effort Auscultation: clear to auscultation bilaterally Cardio Rate: regular rate Rhythm: regular rhythm GI Auscultation: normal bowel sounds Extrem General: Yes normal to inspection Assessment & Plan Assessment & Plan (1) S/P laparoscopic sleeve gastrectomy: Code(s): Z98.84 - Bariatric surgery status Category: Surgical Plan: Patient has not been seen in over a year. We will check follow-up labs. She is still taking a multivitamin and calcium plus D. We will change meal plan Premier protein ready to drink shake 6 oz in the morning with another shake with 1 scoop in the afternoon. She may use 1 scoop of powder in the morning and 1 scoop of powder in the afternoon or she may have the entire ready to drink shake and no shake in the afternoon. I suggested splitting into 2 shakes. Mosotho yogurt Meal with 7 forks of protein and 7 forks of vegetables Increase exercise by 1 day Return to clinic 1 month Orders: Orders Insulin Today K74.00 - Hepatic fibrosis, unspecified, Z98.84 - Bariatric surgery status Complete Blood Count Auto Diff Today K74.00 - Hepatic fibrosis, unspecified, Z98.84 - Bariatric surgery status Vitamin B12 and Folate Today K74.00 - Hepatic fibrosis, unspecified, Z98.84 - Bariatric surgery status Zinc Today K74.00 - Hepatic fibrosis, unspecified, Z98.84 - Bariatric surgery status C Reactive Protein Today K74.00 - Hepatic fibrosis, unspecified, Z98.84 - Bariatric surgery status Vitamin A Today K74.00 - Hepatic fibrosis, unspecified, Z98.84 - Bariatric surgery status TSH reflex Free T4 Today K74.00 - Hepatic fibrosis, unspecified, Z98.84 - Bariatric surgery status Ferritin Today K74.00 - Hepatic fibrosis, unspecified, Z98.84 - Bariatric surgery status Basic Metabolic Panel Today K74.00 - Hepatic fibrosis, unspecified, Z98.84 - Bariatric surgery status Hemoglobin A1c Today K74.00 - Hepatic fibrosis, unspecified, Z98.84 - Bariatric surgery status Lipid Panel Today K74.00 - Hepatic fibrosis, unspecified, Z98.84 - Bariatric surgery status IRON PROFILE Today K74.00 - Hepatic fibrosis, unspecified, Z98.84 - Bariatric surgery status Vitamin B1 Today K74.00 - Hepatic fibrosis, unspecified, Z98.84 - Bariatric surgery status Vitamin D 25-OH Total Today K74.00 - Hepatic fibrosis, unspecified, Z98.84 - Bariatric surgery status
[2025-02-10 08:44] VITALS: BP 119/56; PULSE 70; TEMP 36.1; O2SAT 99; BMI 31.9
== END 2025-02-10 09:03 | disposition home or self-care (01) ==
LOC: HO.HBS 08:10
PROVIDERS: PCP Nurse Practitioner Gerontology; Visit Provider Physician Assistant Surgical
DX: E66.9 Obesity, unspecified (principal); Z68.31 Body mass index [BMI] 31.0-31.9, adult; Z90.3 Acquired absence of stomach [part of]; Z98.84 Bariatric surgery status
CPT/HCPCS: 99214

== ENCOUNTER 2025-03-18 11:30 | Outpatient (AMB) | payer BC, SELFPAY ==
--- NOTE | 2025-03-18 09:38 | A.OFFVIS_ITS ---
VS Expanded 03/18/25 09:40 Height 5 ft 6 in Weight 194 lb 8 oz BMI 31.4 Body Fat % 39.9 Fat Free Mass 117 Visceral Fat Rating 14 Body Water % 41.2 Muscle Mass/Score 110 Basal Metabolic Rate/Score 1,517 Intake Visit Reasons: TV PO LSG 05/14/22 Allergies cefaclor (From Ceclor) Adverse Reaction (Mild, Verified 02/10/25 08:36) Headache HPI Comments Details: Patient is a 49-year-old female who returns to the office today in follow-up. She is approximately 2 years 10 months post sleeve gastrectomy performed on 05/14/2022. She was seen in the office in January 2025 after not being seen in over a year, weight was 197.4 lb with a BMI of 31.9. Weight today is 194.8 lb with a BMI of 31.4 At her last visit, she was given a meal plan and exercise plan and follow-up visit in 6 weeks. She states that since last being seen, approximately 15 months ago, she has been traveling for her children to [place] and [place]. She additionally developed left facial pain that is felt to be secondary to trigeminal neuralgia. She has seen multiple physicians and continues to undergo workup for this. As a result of all of the above, she has had difficulty maintaining a consistent meal plan and exercise plan and ultimately regained weight. She is here to improve upon those dynamics. Taking MVI and Lenny + D Since her last visit, she is using powder 1 scoop with 8 oz almond milk meal plan: 7-9 Premier protein shake with 1 scoop 10-12 Solomon Islander yogurt w berries or apple/pear 1-3 shake w 1 scoop Meal at 5 pm with 7 forks of protein and 7 forks of vegetables Drinking 64 oz water exercise plan: crossfit 5 days per week, 350-450 calories [facility] Medical History Hip pain Asthma Factor V deficiency Factor V deficiency BMI 36.0-36.9,adult Obesity GENIA (obstructive sleep apnea) H/O complications due to general anesthesia Hypothyroid Anemia Fatty liver COVID-19 vaccine series completed History of COVID-19 Borderline high cholesterol Adjustment disorder Abnormal EKG Prediabetes GERD (gastroesophageal reflux disease) Morbid obesity Surgical History Hx of wisdom tooth extraction Hx of hysterectomy Hx of tonsillectomy Family History Mother Breast cancer Thyroid condition Father Kidney cancer, primary, with metastasis from kidney to other site Prostate cancer Diabetes Sister Factor 5 Leiden mutation, heterozygous Pre-diabetes Heart problem Son No problems noted. Son No problems noted. Daughter No problems noted. Daughter Seizures Social History Are you a primary career technology teacher to a significant other at home: No Do you presently have visiting nurse or other home services: No Alcohol intake: never Patient Tobacco Use Status: Never used Tobacco Telehealth Telehealth Telehealth Platform: Telephone Location of provider rendering services: practice address Location of patient: address on file Patient Identification confirmed using: Name, : Yes Telehealth method: voice only Patient verbally consented to treatment: Yes Patient verbally consented to billing insurance company: Yes Patient informed of any privacy concerns related to visit: Yes Minutes spent on Phone/Video with Pt.: 10 Assessment & Plan Assessment & Plan (1) S/P laparoscopic sleeve gastrectomy: Code(s): Z98.84 - Bariatric surgery status Category: Surgical Plan: Patient states that she has sometimes skipped her Solomon Islander yogurt. She has been having some difficulty with constipation and has added Colace into her regimen. Discussed adding Benefiber or Metamucil to 1 of her shakes or an 8 oz glass of water daily. Encouraged to follow the meal plan exactly. Additionally, encouraged to be as consistent as possible with exercise with a goal of burning 400 calories or more per day 5 days per week or more. We will have her follow- up in the office in 2 months
[2025-03-18 09:40] VITALS: BMI 31.4
--- OUTSIDE RECORDS SUMMARY | 2025-03-18 12:30 | XMS_ITS | Clinical Summary ---
Author Organization [facility] Address [address] [place] [address] Care Team Providers Care Diet Assistant Name Role Phone Pcp, No Primary Care [...] patient's age to complete this topic Insurance [facility] - PPO Care Teams Diet Assistant Relationship Specialty Start Date End Date Pcp, No PCP - General General Medicine 04/17/20
== END 2025-03-18 11:47 | disposition home or self-care (01) ==
LOC: HO.HBS 11:30
PROVIDERS: PCP Nurse Practitioner Gerontology; Visit Provider Physician Assistant Surgical
DX: E66.9 Obesity, unspecified (principal); Z68.31 Body mass index [BMI] 31.0-31.9, adult; Z90.3 Acquired absence of stomach [part of]; Z98.84 Bariatric surgery status
CPT/HCPCS: 98967

== ENCOUNTER → 2025-03-18 11:30 | Outpatient (BNVA) | payer BC, SELFPAY | PROVIDERS: PCP Nurse Practitioner Gerontology; Visit Provider Physician Assistant Surgical | DX: E66.9 Obesity, unspecified (principal); Z68.31 Body mass index [BMI] 31.0-31.9, adult; Z90.3 Acquired absence of stomach [part of] | CPT/HCPCS: 98967 ==

== ENCOUNTER 2025-06-13 12:27 | Outpatient (AMB) | payer BC, SELFPAY ==
--- NOTE | 2025-06-13 12:04 | MHC.OFFVISWM ---
VS Expanded 06/13/25 12:11 Height 5 ft 6 in Weight 196 lb 6 oz BMI 31.7 Intake Visit Reasons: TV PO LSG 05/14/22 Allergies cefaclor (From [facility]) Adverse Reaction (Mild, Verified 02/10/25 08:36) Headache Medication List - Last Reconciled 06/13/25 by CLARISA Kingston calcium citrate 200 mg PO DAILY gabapentin 100 mg PO BEDTIME multivitamin 1 tab PO DAILY HPI Comments Details: Patient is a 49-year-old female who returns to the office today in follow-up. She is approximately 3 years post sleeve gastrectomy performed on 05/14/2022. Weight at last visit in February was 194.8 lb with a BMI of 31.4. Her mother is battling Alzheimer's, was also diagnosed with breast cancer. Her father also sustained a back injury and required surgery. She also is helping with her aunt and uncle as proxy- they are both in rehab. Has an appointment to follow up with neurology for trigeminal neuralgia. Sometimes takes Advil for this. Rare heartburn- started recently, took a Pepcid and this helped. meal plan: 7-9 Premier protein shake premade mixed with UAM 10-12 Nauruan yogurt w berries or apple/pear 1-3 same shake Meal at 5 pm with 7 forks of protein and 7 forks of vegetables Drinking 64 oz water Taking MVI and Lenny + D she notes evenings are challenging with fast food- tries to get a salad, uses dressing, recognizes not a lot of protein for this meal hungry when she gets home- will start snacking exercise plan: crossfit 5-6 days per week, 350-450 calories tries to go either in morning or at night [facility] Medical History Hip pain Asthma Factor V deficiency Factor V deficiency BMI 36.0-36.9,adult Obesity GENIA (obstructive sleep apnea) H/O complications due to general anesthesia Hypothyroid Anemia Fatty liver COVID-19 vaccine series completed History of COVID-19 Borderline high cholesterol Adjustment disorder Abnormal EKG Prediabetes GERD (gastroesophageal reflux disease) Morbid obesity Surgical History Hx of wisdom tooth extraction Hx of hysterectomy Hx of tonsillectomy Family History Mother Breast cancer Thyroid condition Father Kidney cancer, primary, with metastasis from kidney to other site Prostate cancer Diabetes Sister Factor 5 Leiden mutation, heterozygous Pre-diabetes Heart problem Son No problems noted. Son No problems noted. Daughter No problems noted. Daughter Seizures Social History Are you a primary animal daycare provider to a significant other at home: No Do you presently have visiting nurse or other home services: No Alcohol intake: never Patient Tobacco Use Status: Never used Tobacco Telehealth Telehealth Telehealth Platform: Telephone Location of provider rendering services: practice address Location of patient: address on file Patient Identification confirmed using: Name, : Yes Telehealth method: voice only Patient verbally consented to treatment: Yes Patient verbally consented to billing insurance company: Yes Patient informed of any privacy concerns related to visit: Yes Minutes spent on Phone/Video with Pt.: 15 Assessment & Plan Assessment & Plan (1) S/P laparoscopic sleeve gastrectomy: Code(s): Z98.84 - Bariatric surgery status Category: Surgical Plan Discussed that pt was unlikely to be getting enough protein if skipping PM shake and not getting much protein with dinner. This is likely driving her evening hunger. Recommended half bottle Premier in AM and afternoon each mixed with a few oz UAM. Lunch of Nauruan yogurt with fruit. Dinner with meat and veg, and then another yogurt or half shake in evening to get closer to protein goal of 80g per day. Pt agreeable to this change. If she takes Advil discussed taking Pepcid or omeprazole with it. RTC 4 months TV 30 min.
[2025-06-13 12:11] VITALS: BMI 31.7
== END 2025-06-13 12:29 | disposition home or self-care (01) ==
LOC: HO.HBS 12:27
PROVIDERS: PCP Nurse Practitioner Gerontology; Visit Provider Physician Assistant Surgical
DX: E66.9 Obesity, unspecified (principal); Z68.31 Body mass index [BMI] 31.0-31.9, adult; Z90.3 Acquired absence of stomach [part of]; Z98.84 Bariatric surgery status
CPT/HCPCS: 98967